=== PATIENT | male | born 1975 | race African-American/Black ===

== ENCOUNTER → 2017-03-13 10:25 | Outpatient (CLI) | payer OTHER ==
[2013-10-13 15:44] VITALS: BMI 34.9
[~2017-03-13 10:25] MED LIST: APRESOLINE50 MG PO; ARANESP60 MCG/ML SQ; BENADRYL25 MG PO; BUMEX2 MG PO; CARAFATE1 G PO; CATAPRES-T1 PATCH.WK TD; LASIX80 MG PO; NORCO 5/325 TAB1 TA1 PO; PAXIL20 MG PO; PRILOSEC20 MG PO; RENVELA800 MG PO; TUMS500 MG PO; ULTRAM50 MG PO; VISTARIL25 MG PO; ZESTRIL40 MG PO
== END | disposition home or self-care (01) ==
LOC: D.US 02-27 11:00
DX: Z00.01 Encounter for general adult medical examination with abnormal findings (principal)

== ENCOUNTER 2018-11-19 12:08 | Inpatient (IN) | payer MEDICAID ==
[2018-11-19] MEDS ORDERED: COREG25 MG PO (12:28)
[2018-11-19] MEDS ORDERED: RANITIDINE HCL150 M1 PO (12:29)
[2018-11-19] MEDS ORDERED: ACIDOPHILUS-PE1 EACH PO (12:29)
[2018-11-19] MEDS ORDERED: SENSIPAR30 MG PO (12:30)
[2018-11-19] MEDS ORDERED: PROCARDIA10 MG PO (12:30)
[2018-11-19] MEDS ORDERED: COZAAR100 MG PO (12:30)
[2018-11-19] MEDS ORDERED: CATAPRES0.3 MG PO (12:31)
[2018-11-19 12:58] LABS: BASOPHILS 0.3 % (0-2); HEMATOCRIT 28.8 % (42.0-54.0); HEMOGLOBIN 9.7 g/dL (13.5-17.5); IMMATURE GRANULOCYTES 0.9 % (0-5); LYMPHOCYTES 9.9 % (15-50); MCH 24.9 pg (26.0-34.0); MCHC 33.7 g/dL (31.0-37.0); MEAN PLATELET VOLUME 10.5 fL (7.4-10.4); MONOCYTES 10.9 % (2-11); PLATELET COUNT 200 10x3/uL (130-400); RBC 3.89 10x6/uL (4.20-6.10); RDW 17.3 % (11.5-14.5)
[2018-11-19 13:14] LABS: ALBUMIN 2.8 g/dL (3.4-5.0); ALKALINE PHOSPHATASE 121 U/L (46-116); ALT (SGPT) 16 U/L (10-68); BILIRUBIN - TOTAL 0.86 mg/dL (0.2-1.3); CALC OSMOLALITY 287 mosm/kg (275-300); CALCIUM 9.4 mg/dL (8.5-10.1); CARBON DIOXIDE 24.9 mmol/L (21.0-32.0); CHLORIDE - SERUM 101 mmol/L (98-107); CREATININE - SERUM 10.7 mg/dL (0.6-1.3); GLUCOSE 81 mg/dL (74-106); POTASSIUM - SERUM 5.7 mmol/L (3.5-5.1); PROTEIN - SERUM 7.4 g/dL (6.4-8.2); SODIUM 138 mmol/L (136-145); UREA NITROGEN 48 mg/dL (7-18); eGFR NON AFRICAN AMERICAN 6 mL/min (90-120)
[2018-11-19 13:23] LABS: CKMB 0.5 U/L (0.0-3.6); CREATINE KINASE 61 UL (21-232); TROPONIN-I < 0.017 ng/mL (0.000-0.060)
[2018-11-19 14:00] VITALS: BP 176/105
[2018-11-19 15:00] VITALS: BP 182/98
--- NOTE | 2018-11-19 16:18 | NUR ---
TRANSFER FROM ER BY STRETCHER. OREINTED TO ROOM. CALL LIGHT IN REACH. WILL CONT. PLAN OF CARE.
--- NOTE | 2018-11-19 16:25 | NUR ---
RECIVED FROM ER PER BED, TO ROOM 2121. ADMIT ASSESSMENT PER RN
[2018-11-19 16:36] VITALS: BP 185/107; BMI 33.4
--- NOTE | 2018-11-19 19:05 | MORECARE ---
CASE MANAGEMENT DISCHARGE SUMMARY PATIENT: KASIA MCINTOSH UNIT: [id number] ADM DATE: 11/19/18 AGE: 42 : 79 SEX: M ROOM/BED: D.2121 AUTHOR: ELISSA VASQUEZ PHYSICIAN: REFERRING PHYSICIAN: JOSE D MONTES DE OCA MD DATE OF SERVICE: 11/19/18 Discharge Plan Patient Name: KASIA MCINTOSH [facility] [facility] 1975 Planned Disposition: Anticipated Discharge Date: Discharge Date: Expected LOS: Initial Reviewer: [email or web address] Initial Review Date: 11/19/2018 Generated: 11/19/18 8:04 pm Patient Name: KASIA MCINTOSH Page [id number] at 1905 All edits/amendments must be made on the electronic document DICTATION DATE: 11/19/181903 SENIOR SERVICE AIDE: MARY 11/19/181903 RPT#: [id number] DC DATE: STATUS: ADM IN [facility] [address] [place] [address] END OF REPORT
[2018-11-19 20:00] VITALS: BP 169/108
--- NOTE | 2018-11-19 21:19 | NUR ---
HS MEDS GIVEN WITH FRESH ICE WATER.
[2018-11-19 23:30] VITALS: BP 163/109; BP 169/108
--- NOTE | 2018-11-20 03:25 | NUR ---
NORCO 2 TABS GIVEN AT PT REQUEST FOR C/O PAIN.
--- NOTE | 2018-11-20 04:26 | NUR ---
RESTING WITH EYES CLOSED, RESPERATIONS EVEN, NO S/S DISTRESS NOTED.
[2018-11-20 04:30] VITALS: BP 152/96
--- NOTE | 2018-11-20 05:38 | NUR ---
I have reviewed this patient and I concur with the Shift Assessment completed by the Licensed Practical Nurse today this shift.
--- NOTE | 2018-11-20 07:30 | NUR ---
ASSESSMENT COMPLETED. ALERT AND ORIENTED. TELEMERTY SHOWS SR. OLD LEFT AND RIGHT AVF NOTED. HAS A SL TO RIGHT UPPER ARM. RIGHT SIDED TESSIO NOTED. NORCO 10MG GIVEN FOR C/O FOOT AND SABDOMINAL PAIN. SR UP WITH CALL LIGHT IN REACH
[2018-11-20 08:43] VITALS: BP 171/109
--- NOTE | 2018-11-20 11:04 | NUR ---
I have reviewed this patient and I concur with the Shift Assessment completed by the Licensed Practical Nurse today this shift.
[2018-11-20 11:40] VITALS: BP 180/105
[2018-11-20 12:10] LABS: BASOPHILS 0.2 % (0-2); EOSINOPHILS 2.5 % (0-7); HEMATOCRIT 30.7 % (42.0-54.0); HEMOGLOBIN 10.5 g/dL (13.5-17.5); IMMATURE GRANULOCYTES 1.3 % (0-5); LYMPHOCYTES 5.2 % (15-50); MCH 25.4 pg (26.0-34.0); MCHC 34.2 g/dL (31.0-37.0); MCV 74.2 fL (80.0-100.0); MEAN PLATELET VOLUME 8.9 fL (7.4-10.4); MONOCYTES 9.2 % (2-11); NEUTROPHILS 81.6 % (40-80); PLATELET COUNT 167 10x3/uL (130-400); RBC 4.14 10x6/uL (4.20-6.10); RDW 17.4 % (11.5-14.5)
[2018-11-20 12:33] LABS: % SATURATION 53 % (15-55); IRON 51 ug/dl (35-150); TOTAL IRON BIND CAPACITY 96 ug/dl (260-445)
[2018-11-20 12:36] VITALS: BMI 33.3
[2018-11-20 12:38] LABS: UNSAT IRON BIND CAPACITY 45 ug/dl (150-375)
--- NOTE | 2018-11-20 13:00 | NUR ---
MEDS GIVEN, NO NEEDS VOICED. SR UP WITH CALL LIGHT IN REACH
[2018-11-20 13:08] LABS: ALBUMIN 2.5 g/dL (3.4-5.0); ALKALINE PHOSPHATASE 121 U/L (46-116); BILIRUBIN - TOTAL 0.67 mg/dL (0.2-1.3); CALCIUM 9.5 mg/dL (8.5-10.1); CARBON DIOXIDE 25.7 mmol/L (21.0-32.0); CHLORIDE - SERUM 99 mmol/L (98-107); CKMB 0.4 U/L (0.0-3.6); CREATINE KINASE 25 UL (21-232); CREATININE - SERUM 13.3 mg/dL (0.6-1.3); GLUCOSE 108 mg/dL (74-106); POTASSIUM - SERUM 5.9 mmol/L (3.5-5.1); SODIUM 137 mmol/L (136-145); TROPONIN-I < 0.017 ng/mL (0.000-0.060); eGFR NON AFRICAN AMERICAN 4 mL/min (90-120)
[2018-11-20 13:09] LABS: ALT (SGPT) 22 U/L (10-68); CALC OSMOLALITY 292 mosm/kg (275-300); FERRITIN 1521 ng/mL (3-244); UREA NITROGEN 62 mg/dL (7-18)
[2018-11-20 15:38] VITALS: BP 194/101
--- NOTE | 2018-11-20 17:00 | NUR ---
T0 DIALYSIS PER BED.
--- NOTE | 2018-11-20 19:25 | NUR ---
REPORT RECIEVED AND ROUNDING COMPLETE. PT IS CURRENTLY IN DIALYSIS.
[2018-11-21] VITALS: BP 182/110
--- NOTE | 2018-11-21 01:00 | NUR ---
I have reviewed this patient and I concur with the Shift Assessment completed by the Licensed Practical Nurse today this shift.
[2018-11-21 04:30] VITALS: BP 185/123
--- NOTE | 2018-11-21 07:30 | NUR ---
ASSESSMENT COMPLETED. ALERT AND ORIENTED. 02 PRN. TELEMERTY SHOWS SR. LEFT UPPER ARM AND LEFT AC.TESSO TO RIGHT CHEST. SORE TO LEFT ANKLE. DENIES ANY NEEDS AT PRESENT TIME
[2018-11-21 08:23] LABS: BASOPHILS 0.2 % (0-2); EOSINOPHILS 2.2 % (0-7); HEMATOCRIT 32.8 % (42.0-54.0); HEMOGLOBIN 11.1 g/dL (13.5-17.5); IMMATURE GRANULOCYTES 1.2 % (0-5); LYMPHOCYTES 6.5 % (15-50); MCH 24.9 pg (26.0-34.0); MCHC 33.8 g/dL (31.0-37.0); MCV 73.7 fL (80.0-100.0); NEUTROPHILS 80.9 % (40-80); PLATELET COUNT 169 10x3/uL (130-400); RBC 4.45 10x6/uL (4.20-6.10); RDW 17.4 % (11.5-14.5)
[2018-11-21 08:24] LABS: WBC 11.7 10x3/uL (4.8-10.8)
[2018-11-21 08:30] VITALS: BP 180/101
[2018-11-21 08:42] LABS: ANION GAP 19.3 mmol/L (8-16); CALCIUM 9.9 mg/dL (8.5-10.1); CARBON DIOXIDE 25.3 mmol/L (21.0-32.0); CREATININE - SERUM 10.6 mg/dL (0.6-1.3); POTASSIUM - SERUM 5.6 mmol/L (3.5-5.1)
--- NOTE | 2018-11-21 10:58 | NUR ---
Nutrition follow-up: Diet: Renal PO intake 75-100% of meals Labs reviewed Wt: 239# +BM RDN following.
[2018-11-21 12:30] VITALS: BP 156/95
[2018-11-21 13:45] LABS: AMYLASE - SERUM 43 U/L (25-115); LIPASE 164 U/L (73-393)
--- NOTE | 2018-11-21 18:24 | NUR ---
BACK FROM DIALYSIS. PAIN MEDS GIVEN. WILL MONITOR
[2018-11-21 20:00] VITALS: BP 169/103
--- NOTE | 2018-11-21 20:00 | NUR ---
PT RESTING IN BED WITH NO DISTRESS. GUARD AT BEDSIDE. ALERT/ORIENTED. REVIEWED PAIN MED AVAILABILITY AND FREQUENCY. PT DIALYZED TODAY VIA RIGHT CHEST WALL TESSIO. HE HAS NONFUNCTIONING FISTULAS TO BOTH LEFT AND RIGHT ARMS. LEFT ARM CAN BE UTILIZED FOR BP'S AND IV'S. HE HAS 2 PIVS SALINE LOCKED TO LEFT ARM. SR PER TELEMETRY. MONITOR AND CPOC.
--- NOTE | 2018-11-21 22:00 | NUR ---
SCHEDULED APRESOLINE GIVEN. CURRENT BP 169/103. NORCO PAIN PILLS X 2 ADMINISTERED. MONITOR AND CPOC.
[2018-11-21 22:06] LABS: FOLATE (FOLIC ACID) - SERUM 5.9 ng/mL (>3.0)
[2018-11-21 23:30] VITALS: BP 145/90
--- NOTE | 2018-11-22 02:22 | NUR ---
GUARD AT BEDSIDE. PT REQUESTING PAIN MEDS, THEN JUICE, THEN JELLO, THEN WANTING TO GET UP AND SHOWER. AT THIS POINT, GUARD STATES IT IS NOT NECESSARY FOR PT TO SHOWER IN THE MIDDLE OF THE NIGHT AND SHOWER/LINEN CHANGE CAN BE DONE IN THE DAYTIME.
[2018-11-22 04:20] VITALS: BP 181/110
--- NOTE | 2018-11-22 04:36 | NUR ---
NOTED BP OF 181/110. REVIEWED ALL MEDS AVAILABLE. PT HAS NO PRN BP MEDS. ADMINISTERED WHAT WOULD BE THE AM SCHEDULED PROCARDIA 90MG AND THE APRESOLINE 100MG ORAL AT THIS TIME AND WILL HAVE DAY NURSE REVIEW BP TRENDS OF BEING ELEVATED AT 0400 LAST TWO NIGHTS WITH THE MD/RENALS WHEN THEY ROUND TODAY. PT VOICED UNDERSTANDING TO WHY HE IS RECIEVING HIS MEDS EARLY. WILL MONITOR AND CPOC.
[2018-11-22 06:55] LABS: BASOPHILS 0.2 % (0-2); EOSINOPHILS 2.6 % (0-7); HEMATOCRIT 32.3 % (42.0-54.0); HEMOGLOBIN 11.2 g/dL (13.5-17.5); IMMATURE GRANULOCYTES 2.6 % (0-5); LYMPHOCYTES 4.8 % (15-50); MCH 25.3 pg (26.0-34.0); MCHC 34.7 g/dL (31.0-37.0); MCV 72.9 fL (80.0-100.0); MONOCYTES 8.9 % (2-11); NEUTROPHILS 80.9 % (40-80); PLATELET COUNT 190 10x3/uL (130-400); RBC 4.43 10x6/uL (4.20-6.10); RDW 17.7 % (11.5-14.5)
[2018-11-22 06:56] LABS: WBC 14.9 10x3/uL (4.8-10.8)
--- NOTE | 2018-11-22 07:00 | NUR ---
REPORT TO ONCOMING NURSE. REPORTED THAT AM DOSES OF BP MEDS HAVE ALREADY BEEN GIVEN DUE TO ELEVATED BP AND ON PRN'S AVAILABLE. DAY HEALTH AND HUMAN PERFORMANCE PROFESSOR NOW REPORTING TO DAY NURSE THAT BP IS STILL ELEVATED.
[2018-11-22 07:13] LABS: ANION GAP 16.9 mmol/L (8-16); CALCIUM 10.1 mg/dL (8.5-10.1); CARBON DIOXIDE 26.1 mmol/L (21.0-32.0); CREATININE - SERUM 10.1 mg/dL (0.6-1.3)
[2018-11-22 08:31] VITALS: BP 174/107
[2018-11-22 11:30] VITALS: BP 164/104
[2018-11-22 16:34] VITALS: BP 165/102
[2018-11-22 20:14] VITALS: BP 142/90
--- NOTE | 2018-11-22 20:58 | NUR ---
SCHEDULED MEDS GIVEN. REQUESTED PAIN MED GIVEN. PT TEACHING ON NORCO 10, PROVIDING SAME AMOUNT OF PAIN MED NORCO 5 X 2, ONLY LESS HARMFUL TYLENOL. GUARD AT BEDSIDE. MONITOR AND CPOC.
[2018-11-22 23:45] VITALS: BP 149/90
--- NOTE | 2018-11-23 02:44 | NUR ---
AWAKE AND WATCHING TV. REQUEST DRINK, SPOON TO EAT DESERT AND THEN PAIN MEDS FOR CHEST DISCOMFORT 02/07. PAIN MED GIVEN, GUARD AT BEDSIDE. NO OTHER NEEDS VOICED.
[2018-11-23 03:49] VITALS: BP 167/93
[2018-11-23 03:51] LABS: ANION GAP 17.8 mmol/L (8-16); BASOPHILS 0.4 % (0-2); CALCIUM 9.9 mg/dL (8.5-10.1); CARBON DIOXIDE 25.2 mmol/L (21.0-32.0); CREATININE - SERUM 12.1 mg/dL (0.6-1.3); EOSINOPHILS 2.8 % (0-7); HEMATOCRIT 32.3 % (42.0-54.0); HEMOGLOBIN 10.9 g/dL (13.5-17.5); IMMATURE GRANULOCYTES 1.9 % (0-5); LYMPHOCYTES 4.2 % (15-50); MCH 24.8 pg (26.0-34.0); MCHC 33.7 g/dL (31.0-37.0); MCV 73.4 fL (80.0-100.0); MONOCYTES 6.3 % (2-11); NEUTROPHILS 84.4 % (40-80); PLATELET COUNT 180 10x3/uL (130-400); RDW 17.8 % (11.5-14.5); WBC 13.9 10x3/uL (4.8-10.8)
--- NOTE | 2018-11-23 07:10 | NUR ---
REPORT RECEIVED. WILL CONTINUE WITH POC. PT CURRENTLY LYING ON RIGHT SIDE RESTING. CALL LIGHT W/I REACH. GUARD AT BEDSIDE. RR EVEN AND UNLABORED ON RA. L. FOR PIV IS SALINE LOCKED. NO S/S OF DISTRESS NOTED. WILL CTM.
--- NOTE | 2018-11-23 08:58 | NUR ---
I have reviewed this patient and I concur with the Shift Assessment completed by the Licensed Practical Nurse today this shift.
[2018-11-23 10:00] VITALS: BP 159/93
[2018-11-23 16:43] VITALS: BP 153/88
[2018-11-23 17:14] VITALS: BP 160/89
--- NOTE | 2018-11-23 18:19 | NUR ---
PT CURRENTLY RESTING ON RIGHT SIDE. CALL LIGHT W/I REACH. RR EVEN AND UNLABORED ON RA. GUARD AT BEDSIDE. NO S/S OF DISTRESS NOTED. PT DENIES ANY NEEDS AT THIS TIME. WILL PASS REPORT AND CONTINUE WITH POC.
--- NOTE | 2018-11-23 19:22 | NUR ---
RECEIVED REPORT, WILL ASSUME CARE OF PT, DENIES ANY NEEDS AT THIS TIME, GUARD AT BEDSIDE, BED IS LOW, SRX2, CALL LIGHT IN REACH, WILL CONTINUE PLAN OF CARE
[2018-11-23 19:55] VITALS: BP 131/81
[2018-11-24 03:43] VITALS: BP 152/70
--- NOTE | 2018-11-24 04:07 | NUR ---
I have reviewed this patient and I concur with the Shift Assessment completed by the Licensed Practical Nurse today this shift.
[2018-11-24 05:45] LABS: BASOPHILS 0.2 % (0-2); EOSINOPHILS 2.7 % (0-7); HEMATOCRIT 31.2 % (42.0-54.0); HEMOGLOBIN 10.5 g/dL (13.5-17.5); IMMATURE GRANULOCYTES 1.4 % (0-5); LYMPHOCYTES 5.8 % (15-50); MCH 24.6 pg (26.0-34.0); MCHC 33.7 g/dL (31.0-37.0); MCV 73.1 fL (80.0-100.0); MEAN PLATELET VOLUME 9.4 fL (7.4-10.4); MONOCYTES 5.6 % (2-11); NEUTROPHILS 84.3 % (40-80); PLATELET COUNT 214 10x3/uL (130-400); RBC 4.27 10x6/uL (4.20-6.10); RDW 18.3 % (11.5-14.5); WBC 17.2 10x3/uL (4.8-10.8)
[2018-11-24 06:06] LABS: ANION GAP 22.3 mmol/L (8-16); CALCIUM 9.6 mg/dL (8.5-10.1); CARBON DIOXIDE 24.5 mmol/L (21.0-32.0); CREATININE - SERUM 13.8 mg/dL (0.6-1.3)
[2018-11-24 06:07] LABS: POTASSIUM - SERUM 5.8 mmol/L (3.5-5.1)
[2018-11-24 07:38] VITALS: BP 157/99
--- NOTE | 2018-11-24 07:40 | NUR ---
ASSESSMENT COMPLETED. ALERT AND ORIENTED. TELEMERTY SHOWS SR. LEFT UPPER ARM SL. OLD RIGHT AND LEFT AVF, NOT WORKING. UP AB BRIGHT. DENIES ANY NEEDS AT PRESENT TIME. CALL LIGHT IN REACH.
[2018-11-24 11:56] VITALS: BP 155/92
[2018-11-24 16:14] VITALS: BP 183/101
--- NOTE | 2018-11-24 20:53 | NUR ---
PT STILL IN DIALYSIS.
[2018-11-25] VITALS: BP 168/102
--- NOTE | 2018-11-25 03:24 | NUR ---
I have reviewed this patient and I concur with the Shift Assessment completed by the Licensed Practical Nurse today this shift.
[2018-11-25 04:00] VITALS: BP 159/99
[2018-11-25 04:59] LABS: ANION GAP 15.1 mmol/L (8-16); CALCIUM 9.8 mg/dL (8.5-10.1); CARBON DIOXIDE 27.7 mmol/L (21.0-32.0); CREATININE - SERUM 10.5 mg/dL (0.6-1.3); VANCOMYCIN - RANDOM 0.7 ug/mL (10.0-20.0)
[2018-11-25 05:01] LABS: BASOPHILS 0.2 % (0-2); EOSINOPHILS 1.8 % (0-7); HEMATOCRIT 31.9 % (42.0-54.0); HEMOGLOBIN 10.8 g/dL (13.5-17.5); IMMATURE GRANULOCYTES 1.5 % (0-5); LYMPHOCYTES 3.8 % (15-50); MCH 24.8 pg (26.0-34.0); MCHC 33.9 g/dL (31.0-37.0); MCV 73.2 fL (80.0-100.0); MONOCYTES 6.7 % (2-11); PLATELET COUNT 232 10x3/uL (130-400); RBC 4.36 10x6/uL (4.20-6.10); RDW 18.3 % (11.5-14.5); WBC 19.6 10x3/uL (4.8-10.8)
[2018-11-25 05:19] LABS: POTASSIUM - SERUM 4.8 mmol/L (3.5-5.1)
--- NOTE | 2018-11-25 07:15 | NUR ---
ASSESSMENT COMPLETED. ALERT AND ORIENTED. TELEMERTY SHOWS SR 100. SL TO LEFT UPPER ARM. RIGHT AND LEFT AVF NOT WORKING. RIGHT CHEST TESSIO. UP AB BRIGHT. SR UP WITH CALL LIGHT IN REACH.
[2018-11-25 07:47] VITALS: BP 168/90
--- NOTE | 2018-11-25 08:50 | NUR ---
C/O ABD PAIN. PEROCET PO GIVEN FOR RELIEF
--- NOTE | 2018-11-25 14:34 | NUR ---
I have reviewed this patient and I concur with the Shift Assessment completed by the Licensed Practical Nurse today this shift.
[2018-11-25 16:16] VITALS: BP 120/63
[2018-11-25 16:22] VITALS: BP 140/60
--- NOTE | 2018-11-25 17:46 | NUR ---
LYING QUIETLY WATCHING TV. DENIES ANY NEEDS. TELEMERTY SHOWS SR
[2018-11-25 20:00] VITALS: BP 157/94
[2018-11-26] VITALS: BP 140/90
--- NOTE | 2018-11-26 02:35 | NUR ---
I have reviewed this patient and I concur with the Shift Assessment completed by the Licensed Practical Nurse today this shift.
[2018-11-26 04:00] VITALS: BP 143/97
[2018-11-26 05:19] LABS: BASOPHILS 0.1 % (0-2); EOSINOPHILS 1.9 % (0-7); HEMATOCRIT 30.6 % (42.0-54.0); HEMOGLOBIN 10.4 g/dL (13.5-17.5); IMMATURE GRANULOCYTES 1.1 % (0-5); LYMPHOCYTES 3.4 % (15-50); MCH 25.1 pg (26.0-34.0); MCV 73.7 fL (80.0-100.0); MEAN PLATELET VOLUME 9.6 fL (7.4-10.4); MONOCYTES 7.9 % (2-11); NEUTROPHILS 85.6 % (40-80); PLATELET COUNT 276 10x3/uL (130-400); RBC 4.15 10x6/uL (4.20-6.10); RDW 18.8 % (11.5-14.5); WBC 19.5 10x3/uL (4.8-10.8)
[2018-11-26 05:52] LABS: CALCIUM 9.8 mg/dL (8.5-10.1); CREATININE - SERUM 12.9 mg/dL (0.6-1.3); PHOSPHOROUS 6.8 mg/dL (2.5-4.9)
--- NOTE | 2018-11-26 07:23 | NUR ---
PT IN BED RESTING COMFORTABLY WITH EYES CLOSED. RESP EVEN AND NONLABORED ON RA. LT UPPER ARM IV SL. PT SHACKLED TO THE BED, GUARD AT BEDSIDE, NAD NOTED, WILL CONTINUE PLAN OF CARE.
[2018-11-26 07:56] VITALS: BP 147/88
--- NOTE | 2018-11-26 08:21 | NUR ---
AM MEDS GIVEN AT THIS TIME. PT C/O ABD PAIN, INFORMED HIM THAT HE CANNOT HAVE ANYTHING UNTIL AROUND 1000. PT JUST GOT OUT OF THE SHOWER, DENIES ANY NEEDS AT THIS TIME. CALL LIGHT IN REACH, NAD NOTED, WILL CONTINUE TO MONITOR.
--- NOTE | 2018-11-26 10:50 | NUR ---
TO DIALYSIS AT THIS TIME.
--- NOTE | 2018-11-26 13:11 | NUR ---
Nutrition follow-up: Diet: Renal PO intake 100% of most meals Labs reviewwed +BM Wt: 238# RDN following.
[2018-11-26 16:33] VITALS: BP 142/78
--- NOTE | 2018-11-26 19:33 | NUR ---
ASSESSMENT COMPLETE. PT A&O. RESPERATIONS EVEN ON RA. IV TO LEFT UPPER ARM SL, SITE CLEAN AND DRY. PT ASKING FOR PAIN MEDS WHEN AVAILABLE. GUARD AT BED SIDE. BED LOW, CL IN REACH.
[2018-11-26 20:00] VITALS: BP 113/72
--- NOTE | 2018-11-26 20:18 | NUR ---
PT TRYING TO CLIMB OUT OF BED AND ARGING WITH NURSING STAFF, HS MEDS GIVEN WITH FRESH ICE WATER. ATIVAN 1 MG GIVEN IV FOR S/S AGITATION.
--- NOTE | 2018-11-26 20:18 | NUR ---
HS MEDS GIVEN WITH FRESH ICE WATER. PERCOCET 1 TAB GIVEN AT PT REQUEST FOR C/O PAIN TO ABD. RATES PAIN AT AN 8 ON PAIN SCALE.
[2018-11-27] VITALS: BP 145/83
--- NOTE | 2018-11-27 01:42 | NUR ---
RESTING WITH EYES CLOSED, RESPERATIONS EVEN, NO S/S DISTRESS NOTED.
--- NOTE | 2018-11-27 02:39 | NUR ---
I have reviewed this patient and I concur with the Shift Assessment completed by the Licensed Practical Nurse today this shift.
[2018-11-27 04:00] VITALS: BP 136/74
[2018-11-27 05:30] LABS: BASOPHILS 0.2 % (0-2); EOSINOPHILS 2.3 % (0-7); HEMATOCRIT 29.8 % (42.0-54.0); HEMOGLOBIN 9.9 g/dL (13.5-17.5); IMMATURE GRANULOCYTES 1.1 % (0-5); LYMPHOCYTES 7.6 % (15-50); MCH 24.6 pg (26.0-34.0); MCHC 33.2 g/dL (31.0-37.0); MCV 74.1 fL (80.0-100.0); MEAN PLATELET VOLUME 9.3 fL (7.4-10.4); MONOCYTES 8.7 % (2-11); NEUTROPHILS 80.1 % (40-80); PLATELET COUNT 304 10x3/uL (130-400); RBC 4.02 10x6/uL (4.20-6.10); RDW 18.8 % (11.5-14.5); WBC 17.2 10x3/uL (4.8-10.8)
[2018-11-27 05:37] LABS: ANION GAP 16.8 mmol/L (8-16); CALCIUM 10.3 mg/dL (8.5-10.1); CARBON DIOXIDE 26.2 mmol/L (21.0-32.0); CREATININE - SERUM 10.3 mg/dL (0.6-1.3); VANCOMYCIN - RANDOM 20.2 ug/mL (10.0-20.0)
--- NOTE | 2018-11-27 07:15 | NUR ---
RECEIVED LYING IN BED WITH RIGHT LEG SHANKLE AND OFFICER IN ROOM. PEDAL PULSE IS PALPABLE. CL IN REACH. DENIES ANY CURRENT NEEDS. RESP EVEN WITHOUT LABOR.
--- NOTE | 2018-11-27 07:57 | NUR ---
VANCOMYCIN LEVEL DONE TODAY WAS 20.2. DR LIEBERMAN WAS HERE AND GAVE ORDER TO HOLD DOSE OF VANCOMYCIN.
[2018-11-27 08:38] VITALS: BP 160/105
--- NOTE | 2018-11-27 10:30 | NUR ---
HE C/O ITCHING TO LEFT ANKLE THAT HAS DRY PATCH OF SKIN NOTED. NO OPEN AREA JUST DRY AND ITCHY. STATES TRIPLE ANTIBIOTIC OINTMENT WOULD BE GOOD. I SPOKE WITH NIKI WALKER AND SHE GAVE THE ORDER FOR THIS,
--- NOTE | 2018-11-27 11:07 | NUR ---
HE HAS TWO OLD SHUNTS ONE IN EACH ARM THAT ARE NOT PATENT AND ARE NOT USED.
[2018-11-27 11:39] VITALS: BP 123/88
--- NOTE | 2018-11-27 13:48 | NUR ---
NO C/O VOICED AT THIS TIME. RESP EVEN WITHOUT LABOR. CL IN REACH. LYING WATCHING TV. TAKING PO FLUIDS WELL.
--- NOTE | 2018-11-27 14:35 | NUR ---
X-RAY OF ABDOMEN DONE PER ORDERS AT THIS TIME. ALICE WELL.
--- NOTE | 2018-11-27 14:52 | NUR ---
CL ON REQUEST SOME APPLE JUICE ON ICE. DENIES ANY CURRENT NEEDS BUT DID ASK IF IT WAS TIME FOR HIS PAIN MEDICATION. I TOLD HIM NO AND HE SAID OK. DENIED ANY OTHER NEEDS.
[2018-11-27 15:55] VITALS: BP 139/76
[2018-11-27] MEDS ORDERED: NORVASC10 MG PO (16:08)
[2018-11-27] MEDS ORDERED: HYDRALAZINE HCL50 MG PO (16:08)
[2018-11-27] MEDS ORDERED: LEVAQUIN750 MG PO (16:15)
[2018-11-27] MEDS ORDERED: Triple Antibiotic Oi TOPICAL (16:18)
--- NOTE | 2018-11-27 16:37 | NUR ---
TREY CALLED STATED HE WOULD NOT BE DISCHARGED TODAY, AFTER CONSULTING WITH RENAL THEY WANT TO DO DIALYSIS TOMORROW AND THEN DISCHARGE. GUARD AND PATIENT ARE AWARE. SHAKLE TO RIGHT FOOT, PEDAL PULSE IS GOOD. REQUESTED SOME JELLO WHICH WAS PROVIDED.
--- NOTE | 2018-11-27 19:18 | NUR ---
BEDSIDE REPORT RECEIVED. PT IS AAO, GUARD AT BEDSIDE. 21/01 NAME AND DATE PLACED ON BOARD. BEDLOW AND CALL LIGHT IN REACH. NO S/S OF DISTRESS. PT WILL CALL FOR ASSIST WHEN NEEDED. WILL CPOC
[2018-11-27 20:00] VITALS: BP 127/79
--- NOTE | 2018-11-27 21:48 | NUR ---
PAIN MED GIVEN FOR 9/10 PAIN. ANTIBIOTIC OIT PUT ON BILATERAL ANKLES. PT HAS GUARD AT BEDSIDE. PT DENIES ANY NEEDS. NO S/S OF DISTRESS. NOURISHMENT IN REACH. PT WILL CALL FOR ASSIST WHEN NEEDED. WILL CPOC
--- NOTE | 2018-11-27 23:33 | NUR ---
PROTONIX GIVEN LEFT UPPER ARM 22G. PT DENIES ANY NEEDS. GUARD IN ROOM; PT HAS NO S/S OF DISTRESS. WILL CPOC
[2018-11-28] VITALS: BP 149/85
--- NOTE | 2018-11-28 01:47 | NUR ---
PT CALLED COMPLAINING OF PAIN. ORDERED PAIN MEDICATION GIVEN. PT ALSO REQUEST A SANDWICH. PT RECEIVED. PT DENIES ANY OTHER NEEDS. NO S/S OF DISTRESS. GUARD AT BEDSIDE. WILL CPOC
[2018-11-28 04:00] VITALS: BP 127/83
[2018-11-28 05:46] LABS: BASOPHILS 0.3 % (0-2); EOSINOPHILS 2.3 % (0-7); HEMATOCRIT 26.8 % (42.0-54.0); IMMATURE GRANULOCYTES 0.9 % (0-5); MCH 24.7 pg (26.0-34.0); MCHC 33.6 g/dL (31.0-37.0); MCV 73.6 fL (80.0-100.0); NEUTROPHILS 79.5 % (40-80); PLATELET COUNT 307 10x3/uL (130-400); RBC 3.64 10x6/uL (4.20-6.10); RDW 18.6 % (11.5-14.5); WBC 14.6 10x3/uL (4.8-10.8)
[2018-11-28 05:54] LABS: ANION GAP 19.2 mmol/L (8-16); CALCIUM 9.6 mg/dL (8.5-10.1); CARBON DIOXIDE 23.4 mmol/L (21.0-32.0); CREATININE - SERUM 12.3 mg/dL (0.6-1.3); POTASSIUM - SERUM 5.6 mmol/L (3.5-5.1); VANCOMYCIN - RANDOM 16.2 ug/mL (10.0-20.0)
--- NOTE | 2018-11-28 06:08 | NUR ---
PT COMPLAINS OF PAIN. PERCOCET GIVEN ORDERED. PT DENIES ANY OTHER NEEDS. WILL CPOC
[2018-11-28 08:02] VITALS: BP 145/81
--- NOTE | 2018-11-28 09:20 | NUR ---
MORNING MEDICATIONS GIVEN ORDERED. PT C/O PAIN IN BILAT LEGS AND ABDOMEN PROVIDED PT WITH HIS PAIN MEDICATION REQUESTED. PT IS SUPPOSED TO BE DISCHARGED BACK TO FACILITY AFTER DIALYSIS. CALLED DIALYSIS AND DISCUSSED WITH FRANK AND SHE WILL HAVE HIM ON FIRST ROTATION. PT IS TO RECIEVE A ONE TIME DOSE OF VANCOMYCIN AT THE END OF HIS DIALYSIS TREATMENT, ALSO DISCUSSED WITH FRANK AND WILL SEND DOWN WITH PT. PT DENIES ANY FURTHER NEEDS AT THIS TIME. GUARD AT BEDSIDE. WILL CPOC.
--- NOTE | 2018-11-28 09:43 | NUR ---
STILL WAITING ON PROCRIT MEDICATION THAT IS DUE. PAGED PHARMACY AND WAITING ON THEM TO PROVIDE.
--- NOTE | 2018-11-28 10:54 | NUR ---
CALLED DIALYSIS AND THEY STATE THEY ARE ALMOST READY FOR PT. NO CURRENT NEEDS. CALLED PHARMACY STILL WAITING ON THE PROCRIT INJECTION. ITS NOW 2 HRS LATE. WILL CTM.
--- NOTE | 2018-11-28 11:38 | NUR ---
PT LEAVING FOR DIALYSIS AT THIS TIME. NO CURRENT NEEDS. HE WILL HAVE VANCOMYCIN AT END OF TREATMENT. NO CURRENT NEEDS.
[2018-11-28] MEDS ORDERED: SENNA8.6 MG PO (12:21)
--- NOTE | 2018-11-28 13:02 | NUR ---
PT STILL IN DIALYSIS AND DOING FINE. DENIES ANY CURRENT PAIN OR NEEDS. CALLED FACILITY @ [phone] TO GIVE NURSE REPORT. PT IS GOING TO BE DISCHARGED TODAY. NO CURRENT NEEDS. WILL CTM.
--- NOTE | 2018-11-28 15:00 | NUR ---
PT BACK FROM DIALYSIS AND RESTING QUIETLY IN BED EATING HIS LUNCH TRAY. PT C/O PAIN AND REQUESTING AND PROVIDED WITH PRN PAIN PILL. D/C PTS L.UPPER ARM PIV WITH CATHETER TIP FULLY INTACT. DISCHARGE TEACHING PROVIDED AND PAPERS SIGNED, PT VERBALIZED UNDERSTANDING AND DENIES ANY QUESTIONS OR CONCERNS. NO FURTHER NEEDS AT THIS TIME. GUARD AT BEDSIDE WAITING ON TRANSPORTATION.
--- NOTE | 2018-11-28 17:19 | MORECARE ---
CASE MANAGEMENT DISCHARGE SUMMARY PATIENT: KASIA MCINTOSH UNIT: [id number] ADM DATE: 11/20/18 AGE: 42 : 79 SEX: M ROOM/BED: D.2123 AUTHOR: ELISSA VASQUEZ PHYSICIAN: REFERRING PHYSICIAN: JOSE D MONTES DE OCA MD DATE OF SERVICE: 11/28/18 Discharge Plan Patient Name: KASIA MCINTOSH [facility] [facility] 1975 Planned Disposition: Other Type of Facility Anticipated Discharge Date: 11/28/18 Discharge Date: Expected LOS: 8 Initial Reviewer: [email or web address] Initial Review Date: 11/19/2018 Generated: 11/28/18 6:19 pm Last DP export: 11/19/18 6:05 p Patient Name: KASIA MCINTOSH Page [id number] at 1719 All edits/amendments must be made on the electronic document DICTATION DATE: 11/28/181717 SHEET METAL TECHNICIAN: MARY 11/28/181717 RPT#: [id number] DC DATE: STATUS: ADM IN [facility] [address] [place] [address] END OF REPORT
--- NOTE | 2018-11-28 17:52 | NUR ---
RETURNED TELEMETRY TO [facility]. PTS TRANSPORTATION FINALLY HERE. NO FURTHER NEEDS.
== END 2018-11-28 17:52 | disposition home or self-care (01) | DRG 682 ==
LOC: D.ER 12:08 → D.M2 13:45 → OBSVTIME 13:45 → D.M2 13:45
PROVIDERS: Emergency Medicine; Family Medicine; Internal Medicine Nephrology; ADMIT Internal Medicine Nephrology; ATTEND Internal Medicine Nephrology
DX: I12.0 Hypertensive chronic kidney disease with stage 5 chronic kidney disease or end stage renal disease (principal); N18.6 End stage renal disease; N25.81 Secondary hyperparathyroidism of renal origin; I42.9 Cardiomyopathy, unspecified; T82.868A Thrombosis due to vascular prosthetic devices, implants and grafts, initial encounter; I20.9 Angina pectoris, unspecified; Z99.2 Dependence on renal dialysis; F32.9 Major depressive disorder, single episode, unspecified; E83.39 Other disorders of phosphorus metabolism; K21.9 Gastro-esophageal reflux disease without esophagitis; D50.9 Iron deficiency anemia, unspecified; E87.5 Hyperkalemia; D63.1 Anemia in chronic kidney disease; Y83.9 Surgical procedure, unspecified as the cause of abnormal reaction of the patient, or of later complication, without mention of misadventure at the time of the procedure

== ENCOUNTER 2019-11-16 10:06 | Inpatient (IN) | payer MEDICAID ==
[~2019-11-16] VITALS: Ht 180.3 cm; Wt 94.1 kg
[~2019-11-16 10:06] MED LIST changes: +ACIDOPHILUS-PE1 EACH PO; +CATAPRES0.3 MG PO; +COREG25 MG PO; +COZAAR100 MG PO; +HYDRALAZINE HCL50 MG PO; +LEVAQUIN750 MG PO; +NORVASC10 MG PO; +PROCARDIA10 MG PO; +RANITIDINE HCL150 M1 PO; +SENNA8.6 MG PO; +SENSIPAR30 MG PO; +Triple Antibiotic Oi TOPICAL
[2019-11-16] MEDS ORDERED: CATAPRES0.1 MG (10:12)
[2019-11-16] MEDS ORDERED: BUMEX2 MG (10:13)
[2019-11-16] MEDS ORDERED: LISINOPRIL40 MG (10:13)
[2019-11-16] MEDS ORDERED: OMEPRAZOLE40 MG (10:14)
[2019-11-16] MEDS ORDERED: ULTRAM50 MG (10:15)
[2019-11-16] MEDS ORDERED: SODIUM THIOSULFATE (10:15)
[2019-11-16] MEDS ORDERED: HYDRALAZINE HCL50 MG (10:16)
[2019-11-16] MEDS ORDERED: COREG12.5 MG PO (10:16)
[2019-11-16] MEDS ORDERED: ZINC50 MG (10:16)
[2019-11-16] MEDS ORDERED: LEVOFLOXACIN500 MG (10:17)
[2019-11-16] MEDS ORDERED: DILTIAZEM PO (10:18)
[2019-11-16] MEDS ORDERED: KALEXATE454 GM (10:18)
[2019-11-16] MEDS ORDERED: CLINDAMYCIN HC150 MG (10:19)
[2019-11-16 10:54] LABS: CALC OSMOLALITY 300 mosm/kg (275-300); CALCIUM 8.4 mg/dL (8.5-10.1); CHLORIDE - SERUM 103 mmol/L (98-107); CREATININE - SERUM 13.6 mg/dL (0.6-1.3); GLUCOSE 83 mg/dL (74-106); POTASSIUM - SERUM 5.1 mmol/L (3.5-5.1); SODIUM 139 mmol/L (136-145); UREA NITROGEN 80 mg/dL (7-18); eGFR NON AFRICAN AMERICAN 4 mL/min (90-120)
[2019-11-16 11:01] LABS: BASOPHILS 0.7 % (0-2); EOSINOPHILS 1.2 % (0-7); HEMATOCRIT 28.6 % (42.0-54.0); HEMOGLOBIN 9.1 g/dL (13.5-17.5); IMMATURE GRANULOCYTES 0.1 % (0-5); LYMPHOCYTES 3.7 % (15-50); MCH 26.5 pg (26.0-34.0); MCHC 31.8 g/dL (31.0-37.0); MCV 83.1 fL (80.0-100.0); MEAN PLATELET VOLUME 10.1 fL (7.4-10.4); MONOCYTES 7.2 % (2-11); NEUTROPHILS 87.1 % (40-80); RBC 3.44 10x6/uL (4.20-6.10); RDW 13.9 % (11.5-14.5)
[2019-11-16 11:06] LABS: PLATELET COUNT 153 10x3/uL (130-400)
[2019-11-16 11:10] LABS: ALBUMIN 3.5 g/dL (3.4-5.0); ALKALINE PHOSPHATASE 131 U/L (30-120); ALT (SGPT) 8 U/L (10-68); BILIRUBIN - TOTAL 0.78 mg/dL (0.2-1.3); CKMB 0.8 U/L (0.0-3.6); CREATINE KINASE 121 UL (21-232); PROTEIN - SERUM 6.8 g/dL (6.4-8.2); TROPONIN-I 0.047 ng/mL (0.000-0.060)
[2019-11-16 11:17] LABS: APTT 35.5 SECONDS (22.8-39.4); INR 1.13 (0.85-1.17); PROTIME 14.4 SECONDS (11.6-15.0)
[2019-11-16 11:29] LABS: PRO BNP 50333 pg/mL (0-125)
[2019-11-16 11:45] VITALS: BP 179/109
--- NOTE | 2019-11-16 11:47 | NUR ---
PT SITTING UP IN BED. NO DISTRESS NOTED. DEBORAH AT BEDSIDE. COLOR WNL FOR RACE. RESPIRATIONS EVEN AND UNLABORED. WILL CONTINUET TO MONITOR PATIENT.
[2019-11-16 13:45] VITALS: BP 184/117; BMI 25.8
--- NOTE | 2019-11-16 14:09 | NUR ---
PATIENT WAS EDUCATED ABOUT DIALYSIS TODAY AND THE IMPORTANCE OF WEARING HIS OXYGEN AT ALL TIME UNTIL HE IS BREATHING BETTER. GAVE PT PAIN MEDICATION PER AUG. PT IS RESTING QUIETLY IN BED
--- NOTE | 2019-11-16 15:11 | NUR ---
PT ADMITTED WITH 2 OPEN WOUNDS (CHRONIC) ON LEFT MEDIAL ANKLE. HE STATES HE'S HAD THEM FOR "A LONG TIME". UPPER WOUND MEASURES 2CM X 1CM X 1CM - LOWER WOUND MEASURES 1CM X 1CM X 0.2CM. NO DRAINAGE OR ODOR IS NOTED. PT STATES THEY DO "DRIP" ALOT AND FREQUENTLY SOAK HIS SOCK. RECOMMENDED MAXORB AG OVER BOTH AREAS, WITH ADAPTIC, 4X4S AND KERLIX TO SECURE. WOUND CARE WILL MONITOR.
[2019-11-16 17:02] VITALS: BP 197/112
--- NOTE | 2019-11-16 19:45 | NUR ---
PT REMAINS IN DIALYSIS AT THIS TIME
[2019-11-16 20:00] VITALS: BP 160/88
--- NOTE | 2019-11-16 20:10 | NUR ---
LANDY FROM DIALYSIS
[2019-11-17] VITALS: BP 162/86
--- NOTE | 2019-11-17 02:35 | NUR ---
I have reviewed this patient and I concur with the Shift Assessment completed by the Licensed Practical Nurse today this shift.
[2019-11-17 04:00] VITALS: BP 150/84
[2019-11-17 05:43] LABS: BASOPHILS 0.5 % (0-2); EOSINOPHILS 1.1 % (0-7); HEMATOCRIT 26.9 % (42.0-54.0); HEMOGLOBIN 8.5 g/dL (13.5-17.5); IMMATURE GRANULOCYTES 0.3 % (0-5); LYMPHOCYTES 5.8 % (15-50); MCH 25.9 pg (26.0-34.0); MCHC 31.6 g/dL (31.0-37.0); MEAN PLATELET VOLUME 10.4 fL (7.4-10.4); MONOCYTES 12.4 % (2-11); NEUTROPHILS 79.9 % (40-80); PLATELET COUNT 149 10x3/uL (130-400); RBC 3.28 10x6/uL (4.20-6.10); WBC 6.5 10x3/uL (4.8-10.8)
[2019-11-17 06:23] LABS: ANION GAP 15.4 mmol/L (8-16); CALCIUM 8.3 mg/dL (8.5-10.1); CARBON DIOXIDE 24.9 mmol/L (21.0-32.0); CREATININE - SERUM 10.4 mg/dL (0.6-1.3)
[2019-11-17 06:24] LABS: POTASSIUM - SERUM 4.3 mmol/L (3.5-5.1)
[2019-11-17 07:52] VITALS: BP 177/103
[2019-11-17 11:36] VITALS: BP 144/82
[2019-11-17 12:31] VITALS: Ht 180.3 cm; Wt 94.1 kg
--- NOTE | 2019-11-17 18:56 | NUR ---
RESTS IN BED WITH CALL LIGHT IN REACH. NO C/O VOICED AT THIS TIME. WILL MONITOR.
--- NOTE | 2019-11-17 19:16 | NUR ---
ALERT AND ORIENTED GABI IS WITH PT PT ASKED FOR AND RECIEVED MANY THINGS BED LOW AND LOCKED GABI IS SHACKLING PT TO BED RAIL CALL LIGHT IN REACH OF PT
[2019-11-18] VITALS: BP 148/84
--- NOTE | 2019-11-18 03:43 | NUR ---
I have reviewed this patient and I concur with the Shift Assessment completed by the Licensed Practical Nurse today this shift.
[2019-11-18 04:00] VITALS: BP 147/81
[2019-11-18 05:52] LABS: EOSINOPHILS 2.4 % (0-7); HEMATOCRIT 26.8 % (42.0-54.0); HEMOGLOBIN 8.6 g/dL (13.5-17.5); LYMPHOCYTES 14.5 % (15-50); MCH 26.1 pg (26.0-34.0); MCHC 32.1 g/dL (31.0-37.0); MCV 81.2 fL (80.0-100.0); MEAN PLATELET VOLUME 10.3 fL (7.4-10.4); MONOCYTES 11.9 % (2-11); NEUTROPHILS 70.2 % (40-80); PLATELET COUNT 146 10x3/uL (130-400)
[2019-11-18 06:15] LABS: WBC 4.2 10x3/uL (4.8-10.8)
[2019-11-18 06:18] LABS: ANION GAP 13.4 mmol/L (8-16); CALCIUM 9.1 mg/dL (8.5-10.1); CARBON DIOXIDE 25.5 mmol/L (21.0-32.0); CREATININE - SERUM 8.9 mg/dL (0.6-1.3); POTASSIUM - SERUM 3.9 mmol/L (3.5-5.1)
[2019-11-18 09:24] VITALS: BP 153/76
[2019-11-18 11:43] VITALS: BP 128/67
[2019-11-18] MEDS ORDERED: CARDIZEM CD180 MG PO (13:01)
--- NOTE | 2019-11-18 13:15 | NUR ---
I have reviewed this patient and I concur with the Shift Assessment completed by the Licensed Practical Nurse today this shift.
--- NOTE | 2019-11-18 13:18 | NUR ---
I PAGED KATHE IQBAL APN TO HAVE DR MONTES DE OCA DO DOC TO DOC FOR DISCHARGE. SHE STATES, " IT HAS BEEN DONE". I RELAYED THIS TO YAN CHARLTON.
--- NOTE | 2019-11-18 13:22 | NUR ---
I CALLED DIALYSIS UNIT AND SPOKE TO VIVI WHO STATES, "IT'S GOING TO BE WITHIN THE NEXT THREE HOURS THEY ARE IN THE UNIT RIGHT NOW". THIS IS RELAYED TO YAN CHARLTON.
--- NOTE | 2019-11-18 13:52 | MORECARE ---
CASE MANAGEMENT DISCHARGE SUMMARY PATIENT: KASIA MCINTOSH UNIT: [id number] ADM DATE: 11/17/19 AGE: 43 : 79 SEX: M ROOM/BED: D.2103 AUTHOR: ELISSA VASQUEZ PHYSICIAN: REFERRING PHYSICIAN: JOSE D MONTES DE OCA MD DATE OF SERVICE: 11/18/19 Discharge Plan Patient Name: KASIA MCINTOSH [facility] [facility] 1975 Planned Disposition: Court\Law Enforcement Anticipated Discharge Date: 11/18/19 Discharge Date: Expected LOS: 1 Initial Reviewer: [email or web address] Initial Review Date: 11/18/2019 Generated: 11/18/19 2:52 pm Comments DCP- Discharge Planning Updated by [email or web address]: Yesi Bangura on 11/18/19 12:[address] Patient Name: KASIA MCINTOSH Admission Status: ER Accout number: [id number] Admission Date: 11-17-2019 : 1975 Admission Diagnosis: Attending: JOSE D MONTES DE OCA Current LOS: 1 Anticipated DC Date: 11-18-2019 Planned Disposition: Court\Law Enforcement Primary Insurance: MEDICAID INTERMEDIATE PENDING Discharge Planning Comments: Received discharge orders. [facility] I have called Milena and she states to have nurse call report to [phone], clinical education coordinator informed. Doc to Doc is completed per Mera. Educational Audiologist: Yesi Bangura Patient Name: KASIA MCINTOSH Page 72795 at 1352 All edits/amendments must be made on the electronic document DICTATION DATE: 11/18/[address] WORKER: MARY 11/18/19 1352 RPT#: [id number] DC DATE: STATUS: ADM IN [facility] [address] [place] [address] END OF REPORT
--- NOTE | 2019-11-18 19:00 | NUR ---
EVENING ROUNDS COMPLETE. PT IN DIALYSIS AT THIS TIME.
--- NOTE | 2019-11-18 21:33 | NUR ---
PT TO DISCHARGE BACK TO ASSISTED AT THIS TIME. PT BEING TAKEN VIA WHEEL CHAIR TO DOOR BY JOSE CARLOS AND GABI. PT AAOX4, NO SIGNS OF DISTRESS, PT REQUEST PAIN MEDICATION. EXPLAINED TO PT THAT PAIN MEDICATION CAN NOT BE GIVEN AT DISCHARGE, PT VOICED THAT HE UNDERSTOOD. NO OTHER NEEDS VOICED.
== END 2019-11-18 21:34 | DRG 640 ==
LOC: D.ER 10:06 → D.M2 11:41 → OBSVTIME 11:57 → D.M2 11-17 15:15
PROVIDERS: Family Medicine; ADMIT Internal Medicine Nephrology; ATTEND Internal Medicine Nephrology
PROC: 5A1D70Z Performance of Urinary Filtration, Intermittent, Less than 6 Hours Per Day (ICD-10-PCS; principal; 2019-11-16)
DX: E87.70 Fluid overload, unspecified (principal); J96.01 Acute respiratory failure with hypoxia; N18.6 End stage renal disease; I12.0 Hypertensive chronic kidney disease with stage 5 chronic kidney disease or end stage renal disease; J81.1 Chronic pulmonary edema; I42.9 Cardiomyopathy, unspecified; F32.9 Major depressive disorder, single episode, unspecified; D63.1 Anemia in chronic kidney disease; E11.621 Type 2 diabetes mellitus with foot ulcer; L97.529 Non-pressure chronic ulcer of other part of left foot with unspecified severity; D69.6 Thrombocytopenia, unspecified

== ENCOUNTER 2019-12-28 08:41 | Inpatient (IN) | payer MEDICAID ==
[2019-12-27 22:00] VITALS: BP 87/63
[~2019-12-28] VITALS: Ht 180.3 cm; Wt 88.5 kg
[2019-12-28] VITALS (14 sets, daily range): BP systolic 86–171; BP diastolic 61–106; BMI 27.2
[~2019-12-28 08:41] MED LIST changes: +BUMEX2 MG; +CARDIZEM CD180 MG PO; +CATAPRES0.1 MG; +CLINDAMYCIN HC150 MG; +COREG12.5 MG PO; +DILTIAZEM PO; +HYDRALAZINE HCL50 MG; +KALEXATE454 GM; +LEVOFLOXACIN500 MG; +LISINOPRIL40 MG; +OMEPRAZOLE40 MG; +SODIUM THIOSULFATE; +ULTRAM50 MG; +ZINC50 MG
[2019-12-28] MEDS ORDERED: SENSIPAR30 MG PO (08:52)
[2019-12-28] MEDS ORDERED: KALEXATE454 GM PO (08:53)
[2019-12-28] MEDS ORDERED: NOVOLIN 70/30 110 ML (08:53)
[2019-12-28] MEDS ORDERED: CATAPRES0.1 MG PO (08:54)
[2019-12-28] MEDS ORDERED: ULTRAM50 MG PO (08:55)
[2019-12-28] MEDS ORDERED: BUMEX2 MG PO (08:55)
[2019-12-28] MEDS ORDERED: HYDRALAZINE HCL50 MG PO (08:56)
[2019-12-28] MEDS ORDERED: RENVELA800 MG PO (08:57)
--- NOTE | 2019-12-28 09:20 | NUR ---
PT INTUBATED BY SAMIRA LORD AT THIS TIME. PT GIVEN 150 OF SUCC, 20 OF ETOMIDATE
[2019-12-28 10:31] LABS: CALCIUM 8.7 mg/dL (8.5-10.1); CARBON DIOXIDE 21.3 mmol/L (21.0-32.0); CHLORIDE - SERUM 100 mmol/L (98-107); GLUCOSE 127 mg/dL (74-106); POTASSIUM - SERUM 5.8 mmol/L (3.5-5.1); SODIUM 137 mmol/L (136-145)
[2019-12-28 10:33] LABS: CALC OSMOLALITY 309 mosm/kg (275-300); CREATININE - SERUM 20.8 mg/dL (0.6-1.3); eGFR NON AFRICAN AMERICAN 3 mL/min (90-120)
[2019-12-28 10:35] LABS: APTT 35.6 SECONDS (22.8-39.4); INR 1.21 (0.85-1.17); PROTIME 15.3 SECONDS (11.6-15.0); UREA NITROGEN 109 mg/dL (7-18)
[2019-12-28 10:57] LABS: BASOPHILS 0.5 % (0-2); EOSINOPHILS 0.1 % (0-7); HEMATOCRIT 34.3 % (42.0-54.0); HEMOGLOBIN 11.2 g/dL (13.5-17.5); IMMATURE GRANULOCYTES 0.2 % (0-5); LYMPHOCYTES 10.7 % (15-50); MCH 26.5 pg (26.0-34.0); MCHC 32.7 g/dL (31.0-37.0); MCV 81.1 fL (80.0-100.0); MONOCYTES 4.7 % (2-11); NEUTROPHILS 83.8 % (40-80); RBC 4.23 10x6/uL (4.20-6.10); RDW 15.6 % (11.5-14.5); WBC 8.7 10x3/uL (4.8-10.8)
[2019-12-28 10:58] LABS: PLATELET COUNT 103 10x3/uL (130-400)
[2019-12-28 11:05] LABS: ALBUMIN 3.7 g/dL (3.4-5.0); ALKALINE PHOSPHATASE 171 U/L (30-120); ALT (SGPT) 15 U/L (10-68); BILIRUBIN - TOTAL 0.59 mg/dL (0.2-1.3); PROTEIN - SERUM 7.3 g/dL (6.4-8.2)
[2019-12-28 11:06] LABS: CKMB 0.7 U/L (0.0-3.6); CREATINE KINASE 148 UL (21-232)
[2019-12-28 11:07] LABS: TROPONIN-I 0.245 ng/mL (0.000-0.060)
--- NOTE | 2019-12-28 11:13 | NUR ---
ELEVATED TROPONIN 0.245 AND LACTIC ACID 3.7 REPORTED TO
--- NOTE | 2019-12-28 11:45 | NUR ---
PT ARRIVED TO UNIT ON ER STRETCHER. ACCOMPANIED BY ER STAFF. TRANSFERRED TO ICU BED AND HOOKED UP TO ICU MONITOR. SEDATION INCREASED BECAUSE PT COMBATIVE TRYING TO EXTUBATE HIMSELF. RT IN ROOM SWITCHING PT OVER TO VENT. WILL CONTINUE TO MONITOR
--- NOTE | 2019-12-28 13:15 | NUR ---
CHECKED BLOOD SUGAR. 67. WILL FOLLOW HYPOGLYCEMIC PROTOCOL. RECHECK IN 45 MINUTES. WILL CONTINUE TO MONITOR
--- NOTE | 2019-12-28 14:00 | NUR ---
RECHECKED BLOOD SUGAR. 95 ON POC. WILL CONTINUE TO MONITOR
--- NOTE | 2019-12-28 15:30 | NUR ---
PT RESTING IN BED. REASSESSMETN COMPLETED. PT TRYING TO SIT UP TO REACH ETT. SEDATION INCREASED. VSS. WILL CONTINUE TO MONITOR
--- NOTE | 2019-12-28 17:15 | NUR ---
RT IN ROOM. WILL CONTINUE TO MONITOR
--- NOTE | 2019-12-28 18:20 | NUR ---
LAB CALLED TO REPORT POSITIVE COVID RESULTS. WILL CONTINUE TO MONITOR
--- NOTE | 2019-12-28 22:42 | NUR ---
SET UP EQUIPMENT FOR TX. TRIED TO ACCESS L AVG. ARM VERY COLD, ABSOLUTLY NO BLOOD RETURN. VSS PT SEDATED ON VENT. DR MOAT WAS NOTIFIED.
[2019-12-29] VITALS (24 sets, daily range): BP systolic 87–171; BP diastolic 45–127; Ht 180.3 cm; Wt 88.5 kg
--- NOTE | 2019-12-29 07:00 | NUR ---
PT REPORT RECEIVED FROM LAPPING MACHINE SET UP OPERATOR NURSE. NO ACUTE SIGNS OF DISTRESS NOTED. PT RESTING IN BED. SEDATED AND INTUBATED. SHIFT ASSESSMENT COMPLETED. WILL CONTINUE TO MONITOR
[2019-12-29 07:33] LABS: BASOPHILS 0 % (0-2); EOSINOPHILS 0 % (0-7); HEMATOCRIT 32.7 % (42.0-54.0); HEMOGLOBIN 11.1 g/dL (13.5-17.5); IMMATURE GRANULOCYTES 0.2 % (0-5); LYMPHOCYTES 6.3 % (15-50); MCH 26.4 pg (26.0-34.0); MCHC 33.9 g/dL (31.0-37.0); MONOCYTES 6.1 % (2-11); NEUTROPHILS 87.4 % (40-80); PLATELET COUNT 85 10x3/uL (130-400); RDW 15.6 % (11.5-14.5); WBC 8.4 10x3/uL (4.8-10.8)
[2019-12-29 07:34] LABS: MCV 77.9 fL (80.0-100.0)
[2019-12-29 07:45] LABS: ALBUMIN 3.3 g/dL (3.4-5.0); BILIRUBIN - TOTAL 0.57 mg/dL (0.2-1.3); CALCIUM 9.1 mg/dL (8.5-10.1); CARBON DIOXIDE 18.2 mmol/L (21.0-32.0); PROTEIN - SERUM 6.9 g/dL (6.4-8.2); VANCOMYCIN - RANDOM 15.7 ug/mL (10.0-20.0)
[2019-12-29 07:48] LABS: ANION GAP 26.1 mmol/L (8-16); CREATININE - SERUM 22.6 mg/dL (0.6-1.3)
[2019-12-29 07:50] LABS: POTASSIUM - SERUM 6.3 mmol/L (3.5-5.1)
--- NOTE | 2019-12-29 09:00 | NUR ---
PT HAD BM. CLEANED UP AND LINENS CHANGED. PT TOLERATED WELL. WILL CONTINUE TO MONITOR
--- NOTE | 2019-12-29 11:15 | NUR ---
PT REASSESSMENT COMPLETED. NO ACUTE SIGNS OF DISTRESS NOTED. WILL CONTINUE TO MONITOR
--- NOTE | 2019-12-29 13:00 | NUR ---
PT HAD SMALL BM. CLEANED UP AND LINENS CHANGED. WILL CONTINUE TO MONTIOR
--- NOTE | 2019-12-29 13:58 | MORECARE ---
CASE MANAGEMENT DISCHARGE SUMMARY PATIENT: KASIA MCINTOSH UNIT: [id number] ADM DATE: 12/28/19 AGE: 44 : 79 SEX: M ROOM/BED: D.2314 AUTHOR: ELISSA VASQUEZ PHYSICIAN: REFERRING PHYSICIAN: SHAQUILLE MONTES DE OCA MD DATE OF SERVICE: 12/29/19 Discharge Plan Patient Name: KASIA MCINTOSH Facility: [facility]:[place] : 1975 Planned Disposition: Court\Law Enforcement Anticipated Discharge Date: Discharge Date: Expected LOS: Initial Reviewer: [email or web address] Initial Review Date: 12/28/2019 Generated: 12/29/19 2:58 pm Comments DCP- Discharge Planning Updated by [email or web address]: Shauna Kim on 12/29/19 12:[address] Patient Name: KASIA MCINTOSH Admission Status: ER Accout number: [id number] Admission Date: 12-28-2019 : 1975 Admission Diagnosis:COVID-19 Attending: Shaquille Montes De Oca Current LOS: 1 Anticipated DC Date: Planned Disposition: Court\Law Enforcement Primary Insurance: MEDICAID LONGTERM PENDING Discharge Planning Comments: PATIENT IS AN [facility] IN[facility]ATE AT [facility] AND WILL RETURN THERE UPON DISCHARGE. GUARD AT BEDSIDE. Land Leasing Information Clerk: Shauna Kim DCPIA - Discharge Planning Initial Assessment Updated by [email or web address]: Shauna Kim on 12/29/19 1:55 pm * Is the patient Alert and Oriented? No * PCP [facility] IN[facility]ATE * Pharmacy [facility] * Preadmission Environment Other * Other Environment LONGTERM * Facility Name [facility] * Equipment None * List name and contact numbers for known caregivers / representatives who currently or will assist patient after discharge: [facility] IN[facility]ATE * Community resources currently utilized None * Additional services required to return to the preadmission environment? No * Can the patient safely return to the preadmission environment? Yes * Has this patient been hospitalized within the prior 30 days at any hospital? No Patient Name: KASIA MCINTOSH Page [id number] at 1358 All edits/amendments must be made on the electronic document DICTATION DATE: 12/29/19 1358 BUMPER MACHINE OPERATOR: DM 12/29/19 1358 RPT#: [id number] DC DATE: STATUS: ADM IN [facility] [address] [place] [address] END OF REPORT
--- NOTE | 2019-12-29 14:02 | NUR ---
PAGED DR KRAFT TO PLACE TRIALYSIS CATHETER. WAITING FOR CALL BACK
--- NOTE | 2019-12-29 15:11 | NUR ---
SPOKE WITH [facility] TO TRY TO OBTAIN CONSENT FOR CENTRAL LINE PLACEMENT. UNABLE TO CONTACT ANY FAMILY MEMBERS TO GET CONSENT. [facility] FACULTY STATED THAT SINCE WE ARE UNABLE TO REACH ANY FAMILY, TO FOLLOW HOSPITAL POLICY. [facility] NUMBER OBTAINED [phone]
--- NOTE | 2019-12-29 15:16 | NUR ---
SPOKE WITH RUFUS AT THE SURGERY OFFICE. NOTIFIED HER DR KRAFT DID NOT PAGE BACK. STATED SHE WOULD TRY TO GET HIM TO CALL.
--- NOTE | 2019-12-29 16:00 | NUR ---
DR KRAFT IN ROOM. UNABLE TO START CENTRAL LINE. AV FISTULA IN RT LEG. WANTS DIALYSIS TO SEE IF IT IS USABLE. IF NOT HE STATED HE WILL COME BACK AND TRY AGAIN.
--- NOTE | 2019-12-29 17:56 | NUR ---
DIALYSIS NURSE IN ROOM. PT RESTING IN BED. NO COMPLAINTS NOTED AT THIS TIME. WILL CONTINUE TO MONITOR
[2019-12-30] VITALS (12 sets, daily range): BP systolic 106–156; BP diastolic 68–117
--- NOTE | 2019-12-30 07:00 | NUR ---
REPORT RECEIVED FROM PETROLEUM PRODUCTION ENGINEER NURSE. PT SELF EXTUBATED DURING THE NIGHT. GUARD OUTSIDE OF ROOM. SHIFT ASSESSMENT COMPLETED. ASKING ABOUT WANTS TO EAT. WILL CONTINUE TO MONITOR
--- NOTE | 2019-12-30 09:22 | NUR ---
PT RESTING IN BED. NO COMPLAINTS NOTED AT THIS TIME. STILL STATES HE IS HUNGRY. WAITING ON SPEECH EVAL. WILL CONTINUE TO MONITOR
--- NOTE | 2019-12-30 11:26 | NUR ---
DR MOTA AT BEDSIDE. UPDATE GIVEN. NEW ORDERS RECEIVED. WILL CONTINUE TO MONITOR
[2019-12-30] MEDS ORDERED: OMNICEF300 MG PO (12:39)
[2019-12-30] MEDS ORDERED: DECADRON4 MG PO (12:41)
[2019-12-30 13:02] LABS: CALCIUM 8.5 mg/dL (8.5-10.1); CARBON DIOXIDE 24.3 mmol/L (21.0-32.0); CREATININE - SERUM 16.9 mg/dL (0.6-1.3)
[2019-12-30 13:52] LABS: POTASSIUM - SERUM 4.3 mmol/L (3.5-5.1)
--- NOTE | 2019-12-30 13:53 | NUR ---
CALLED REPORT TO [facility]. PREPARING TO TRANSFER
--- NOTE | 2019-12-30 17:20 | MORECARE ---
CASE MANAGEMENT DISCHARGE SUMMARY PATIENT: KASIA MCINTOSH UNIT: [id number] ADM DATE: 12/28/19 AGE: 44 : [birth year] SEX: M ROOM/BED: D.2314 AUTHOR: ELISSA VASQUEZ PHYSICIAN: REFERRING PHYSICIAN: SHAQUILLE MONTES DE OCA MD DATE OF SERVICE: 12/30/19 Discharge Plan Patient Name: KASIA MCINTOSH Facility: [facility]:[place] : 1975 Planned Disposition: Court\Law Enforcement Anticipated Discharge Date: 12/30/19 Discharge Date: Expected LOS: 2 Initial Reviewer: [email or web address] Initial Review Date: 12/28/2019 Generated: 12/30/19 6:20 pm DCP- Discharge Planning Updated by [email or web address]: Shauna Kim on 12/29/19 12:[address] Patient Name: KASIA MCINTOSH Admission Status: ER Accout number: [id number] Admission Date: 12-28-2019 : 1975 Admission Diagnosis:COVID-19 Attending: Shaquille Montes De Oca Current LOS: 1 Anticipated DC Date: Planned Disposition: Court\Law Enforcement Primary Insurance: MEDICAID RETIREMENT PENDING Discharge Planning Comments: PATIENT IS AN ADC INMATE AT [facility] AND WILL RETURN THERE UPON DISCHARGE. GUARD AT BEDSIDE. Patent Prosecution Paralegal: Shauna Kim DCPIA - Discharge Planning Initial Assessment Updated by [email or web address]: Shauna Kim on 12/29/19 1:55 pm * Is the patient Alert and Oriented? No * PCP ADC INMATE * Pharmacy [facility] * Preadmission Environment Other * Other Environment RETIREMENT * Facility Name [facility] * Equipment None * List name and contact numbers for known caregivers / representatives who currently or will assist patient after discharge: [facility] INMATE * Community resources currently utilized None * Additional services required to return to the preadmission environment? No * Can the patient safely return to the preadmission environment? Yes * Has this patient been hospitalized within the prior 30 days at any hospital? No Last DP export: 12/29/19 12:58 p Patient Name: KASIA MCINTOSH Page 89826 at 1720 All edits/amendments must be made on the electronic document DICTATION DATE: 12/30/191719 SUPERVISOR DOCK: MARY 12/30/191719 RPT#: [id number] DC DATE: STATUS: ADM IN [facility] [address] [place] [address] END OF REPORT
--- NOTE | 2019-12-30 17:27 | MORECARE ---
CASE MANAGEMENT DISCHARGE SUMMARY PATIENT: KASIA MCINTOSH UNIT: [id number] ADM DATE: 12/28/19 AGE: 44 : 79 SEX: M ROOM/BED: D.2314 AUTHOR: ELISSA VASQUEZ PHYSICIAN: REFERRING PHYSICIAN: SHAQUILLE MONTES DE OCA MD DATE OF SERVICE: 12/30/19 Discharge Plan Patient Name: KASIA MCINTOSH [facility] [facility] 1975 Planned Disposition: Court\Law Enforcement Anticipated Discharge Date: 12/30/19 Discharge Date: Expected LOS: 2 Initial Reviewer: [email or web address] Initial Review Date: 12/28/2019 Generated: 12/30/19 6:26 pm Comments DCP- Discharge Planning Updated by [email or web address]: Keri Borden on 12/30/19 4:[address] PLAN FOR THE PATIENT TO BE TRANSFERED BACK TO [facility] TODAY. CM PROVIDED PHONE NUMBER TO ICU CHARGE NURSE FOR [facility] HOSPITAL UNIT FOR MD TO MD COMMUNICATION AND NURSING REPORT. DCP- Discharge Planning Updated by [email or web address]: Shauna Kim on 12/29/19 12:[address] Patient Name: KASIA MCINTOSH Admission Status: ER Accout number: [id number] Admission Date: 12-28-2019 : 1975 Admission Diagnosis:COVID-19 Attending: Shaquille Montes De Oca Current LOS: 1 Anticipated DC Date: Planned Disposition: Court\Law Enforcement Primary Insurance: MEDICAID LONGTERM PENDING Discharge Planning Comments: PATIENT IS AN ADC INMATE AT [facility] AND WILL RETURN THERE UPON DISCHARGE. GUARD AT BEDSIDE. Resaw Feeder: Shauna Kim DCPIA - Discharge Planning Initial Assessment Updated by [id number]: Shauna Kim on 12/29/19 1:55 pm * Is the patient Alert and Oriented? No * PCP [facility]ATE * Pharmacy [facility] * Preadmission Environment Other * Other Environment LONGTERM * Facility Name [facility] * Equipment None * List name and contact numbers for known caregivers / representatives who currently or will assist patient after discharge: ADC INMATE * Community resources currently utilized None * Additional services required to return to the preadmission environment? No * Can the patient safely return to the preadmission environment? Yes * Has this patient been hospitalized within the prior 30 days at any hospital? No Last DP export: 12/30/19 4:20 pm Patient Name: KASIA MCINTOSH Page 24917 at 1727 All edits/amendments must be made on the electronic document DICTATION DATE: 12/30/191725 STAFFING MANAGER: MARY 12/30/191725 RPT#: [id number] DC DATE: STATUS: ADM IN [facility] [address] [place] [address] END OF REPORT
--- NOTE | 2019-12-30 17:31 | NUR ---
PT DC/D AT 2165 VIA WHEEL CHAIR, GUARD AT SIDE
== END 2019-12-30 17:31 | DRG 208 ==
LOC: D.ER 08:41 → D.ICU 10:44
PROVIDERS: Family Medicine; ADMIT Internal Medicine Nephrology; ATTEND Internal Medicine Nephrology
PROC: 5A1945Z Respiratory Ventilation, 24-96 Consecutive Hours (ICD-10-PCS; principal; 2019-12-28)
PROC: 0BH17EZ Insertion of Endotracheal Airway into Trachea, Via Natural or Artificial Opening (ICD-10-PCS; 2019-12-28)
DX: U07.1 COVID-19 (principal); J12.89 Other viral pneumonia; N18.6 End stage renal disease; J96.01 Acute respiratory failure with hypoxia; G93.41 Metabolic encephalopathy; J90 Pleural effusion, not elsewhere classified; Z91.15 Patient's noncompliance with renal dialysis

== ENCOUNTER → 2020-02-17 05:09 | Day surgery (SDC) | payer OTHER ==
[2019-12-29 14:31] VITALS: BMI 27.2
--- NOTE | ~2020-02-17 | OP ---
PATIENT NAME: KASIA MCINTOSH MEDICAL RECORD: [id number] :[birth year] LOCATION:D.OPS ADMISSION DATE: SURGEON: SONA ROCK MD DATE OF OPERATION: 02/17/2020 An operation did not occur today. The patient had not had a negative COVID test. He was returned back to the half-way. No operative procedure was performed on this day. TRANSINT:[id number] Voice Confirmation ID: [id number] DOCUMENT ID: [id number] SONA ROCK MD CC: [id number] DICTATION DATE: 03/10/20 1104 SCALLOP BINDER: 03/10/20 1150 [facility] [place] 02/17/20 [place] [id number] [place] [id number]
[~2020-02-17 05:09] MED LIST changes: +CATAPRES0.1 MG PO; +DECADRON4 MG PO; +KALEXATE454 GM PO; +MONODOX100 MG PO; +NOVOLIN 70/30 110 ML; +OMNICEF300 MG PO
[2020-02-17 07:08] LABS: ANION GAP 16.9 mmol/L (8-16); CALCIUM 10.5 mg/dL (8.5-10.1); CARBON DIOXIDE 23.7 mmol/L (21.0-32.0); CREATININE - SERUM 9.6 mg/dL (0.6-1.3); POTASSIUM - SERUM 5.6 mmol/L (3.5-5.1)
[2020-02-17 07:52] LABS: BASOPHILS 0.5 % (0-2); EOSINOPHILS 0.9 % (0-7); HEMATOCRIT 20.3 % (42.0-54.0); IMMATURE GRANULOCYTES 0.4 % (0-5); LYMPHOCYTES 9.4 % (15-50); MCH 24.2 pg (26.0-34.0); MCHC 31.5 g/dL (31.0-37.0); MCV 76.6 fL (80.0-100.0); MEAN PLATELET VOLUME 9.6 fL (7.4-10.4); MONOCYTES 7.9 % (2-11); NEUTROPHILS 80.9 % (40-80); RBC 2.65 10x6/uL (4.20-6.10); RDW 16.8 % (11.5-14.5); WBC 7.6 10x3/uL (4.8-10.8)
[2020-02-17 07:53] LABS: PLATELET COUNT 290 10x3/uL (130-400)
[2020-02-17 07:55] LABS: HEMOGLOBIN 6.4 g/dL (13.5-17.5)
== END | disposition home or self-care (01) ==
LOC: D.OPS 05:09
PROVIDERS: ATTEND Surgery
DX: L03.116 Cellulitis of left lower limb (principal); Z53.9 Procedure and treatment not carried out, unspecified reason

== ENCOUNTER 2020-02-26 09:52 | Day surgery (SDC) | payer OTHER ==
[~2020-02-26] VITALS: Ht 180.3 cm; Wt 88.5 kg
[~2020-02-26 09:52] MED LIST changes: -MONODOX100 MG PO
[2020-02-26] MEDS ORDERED: MONODOX100 MG PO (10:24)
[2020-02-26 10:33] VITALS: BP 159/89; Ht 180.3 cm; Wt 88.5 kg
[2020-02-26 11:05] LABS: BASOPHILS 1.7 % (0-2); EOSINOPHILS 3.1 % (0-7); HEMATOCRIT 26.8 % (42.0-54.0); HEMOGLOBIN 8.5 g/dL (13.5-17.5); IMMATURE GRANULOCYTES 0.2 % (0-5); MCH 25.4 pg (26.0-34.0); MCHC 31.7 g/dL (31.0-37.0); MEAN PLATELET VOLUME 9.6 fL (7.4-10.4); MONOCYTES 17.4 % (2-11); NEUTROPHILS 66.6 % (40-80); PLATELET COUNT 244 10x3/uL (130-400); RBC 3.35 10x6/uL (4.20-6.10); RDW 17.9 % (11.5-14.5); WBC 4.2 10x3/uL (4.8-10.8)
[2020-02-26 11:20] LABS: ANION GAP 12.2 mmol/L (8-16); CALCIUM 9.9 mg/dL (8.5-10.1); CARBON DIOXIDE 30.1 mmol/L (21.0-32.0); POTASSIUM - SERUM 4.3 mmol/L (3.5-5.1)
[2020-02-26 12:46] LABS: APTT 35.2 SECONDS (22.8-39.4)
[2020-02-26 12:48] LABS: INR 1.19 (0.85-1.17); PROTIME 15.1 SECONDS (11.6-15.0)
--- NOTE | 2020-02-26 18:28 | NUR ---
173 SURGERY CANCELLED AND IV REMOVED AND PT EATING A REGULAR RENAL DM DIET. BARB TORRES, 183 PT AND LAW ENFORCEMENT LEFT AT 1830
== END 2020-02-26 18:30 ==
LOC: D.OPS 09:52
PROVIDERS: Anesthesiology; ATTEND Surgery
DX: L03.119 Cellulitis of unspecified part of limb (principal); E83.59 Other disorders of calcium metabolism; Z53.9 Procedure and treatment not carried out, unspecified reason; N18.6 End stage renal disease; Z99.2 Dependence on renal dialysis

== ENCOUNTER → 2020-04-06 | Emergency (ER) | payer OTHER ==
[~2020-04-06] VITALS: Ht 180.3 cm; Wt 100.0 kg
[~2020-04-06] MED LIST changes: +MONODOX100 MG PO
[2020-04-06 13:52] LABS: BASOPHILS 0.9 % (0-2); EOSINOPHILS 1.9 % (0-7); HEMATOCRIT 28.7 % (42.0-54.0); HEMOGLOBIN 9.4 g/dL (13.5-17.5); IMMATURE GRANULOCYTES 0.3 % (0-5); MCH 25.1 pg (26.0-34.0); MCHC 32.8 g/dL (31.0-37.0); MCV 76.7 fL (80.0-100.0); NEUTROPHILS 77.9 % (40-80); RBC 3.74 10x6/uL (4.20-6.10); RDW 17.8 % (11.5-14.5); WBC 7.5 10x3/uL (4.8-10.8)
[2020-04-06 13:59] LABS: PLATELET COUNT 152 10x3/uL (130-400)
[2020-04-06 14:06] LABS: ALBUMIN 3.1 g/dL (3.4-5.0); ANION GAP 20.3 mmol/L (8-16); APTT 25.4 SECONDS (22.8-39.4); BILIRUBIN - TOTAL 0.39 mg/dL (0.2-1.3); CARBON DIOXIDE 22.1 mmol/L (21.0-32.0); CREATININE - SERUM 12.5 mg/dL (0.6-1.3); INR 1.12 (0.85-1.17); PROTEIN - SERUM 7.3 g/dL (6.4-8.2); PROTIME 14.4 SECONDS (11.6-15.0)
[2020-04-06 14:08] LABS: POTASSIUM - SERUM 6.4 mmol/L (3.5-5.1)
[2020-04-06 14:58] VITALS: Ht 180.3 cm; Wt 100.0 kg
[2020-04-06 17:00] VITALS: BP 136/74
== END | disposition home or self-care (01) ==
LOC: D.ER 12:28
PROVIDERS: Family Medicine
DX: E87.5 Hyperkalemia (principal); I87.8 Other specified disorders of veins; M79.605 Pain in left leg; I12.0 Hypertensive chronic kidney disease with stage 5 chronic kidney disease or end stage renal disease; N18.6 End stage renal disease; R58 Hemorrhage, not elsewhere classified

== ENCOUNTER → 2020-09-02 11:15 | Outpatient (CLI) | payer OTHER ==
[2020-04-06 14:58] VITALS: BMI 30.7
== END | disposition home or self-care (01) ==
LOC: D.US 08-18 13:00
PROVIDERS: ATTEND Surgery
DX: I87.2 Venous insufficiency (chronic) (peripheral) (principal)

== ENCOUNTER 2020-11-25 06:41 | Observation (INO) | payer MEDICAID ==
[~2020-11-25] VITALS: Ht 180.3 cm; Wt 101.2 kg
[2020-11-25 07:13] LABS: BASOPHILS 2.3 % (0-2); EOSINOPHILS 2.6 % (0-7); HEMATOCRIT 22.8 % (42.0-54.0); LYMPHOCYTES 15.7 % (15-50); MCH 27.7 pg (26.0-34.0); MCHC 32.6 g/dL (31.0-37.0); MCV 84.9 fL (80.0-100.0); MEAN PLATELET VOLUME 8.9 fL (7.4-10.4); NEUTROPHILS 69.4 % (40-80); RBC 2.68 10x6/uL (4.20-6.10); RDW 15.3 % (11.5-14.5)
[2020-11-25 07:22] LABS: ANION GAP 24.3 mmol/L (8-16); CARBON DIOXIDE 21.8 mmol/L (21.0-32.0); CREATININE - SERUM 16.4 mg/dL (0.6-1.3)
[2020-11-25 07:25] LABS: PLATELET COUNT 202 10x3/uL (130-400)
[2020-11-25 07:26] LABS: HEMOGLOBIN 7.4 g/dL (13.5-17.5)
[2020-11-25 07:36] LABS: POTASSIUM - SERUM 6.1 mmol/L (3.5-5.1)
--- NOTE | 2020-11-25 09:48 | NUR ---
SPOKE WITH HALLEY SHAY APN, PT TO HAVE DIALYSIS BEFORE SURGERY.
[2020-11-25 10:04] VITALS: BP 154/95; BMI 31.1
[2020-11-25 10:07] LABS: APTT 29.6 SECONDS (22.8-39.4); INR 1.11 (0.85-1.17); PROTIME 13.2 SECONDS (11.6-15.0)
[2020-11-25] MEDS ORDERED: XALATAN 0.0052.5 ML (10:31)
[2020-11-25] MEDS ORDERED: ULTRAM50 MG (10:31)
--- NOTE | 2020-11-25 13:46 | NUR ---
VS 144/80-87-18-98% SAT. STILL AWAITING PROCEDURE. BUMEX GIVEN ORDERED I
[2020-11-25 18:28] LABS: BASOPHILS 2.7 % (0-2); EOSINOPHILS 2.3 % (0-7); MCH 27.5 pg (26.0-34.0); MCHC 32.6 g/dL (31.0-37.0); MCV 84.5 fL (80.0-100.0); MEAN PLATELET VOLUME 8.5 fL (7.4-10.4); PLATELET COUNT 214 10x3/uL (130-400); RDW 15.6 % (11.5-14.5); WBC 7.5 10x3/uL (4.8-10.8)
--- NOTE | 2020-11-25 19:07 | NUR ---
PT ARRIVED TO PACU WITH BLOOD INFUSING VIA DRIP CHAMBER. SEE VITAL SIGN FLOWSHEET. PT IS a&OX4.
--- NOTE | 2020-11-25 19:07 | NUR ---
JAY VIDALES JUST GAVE 10MG OF LABETALOL IV AT THIS TIME WHEN ARRIVING IN PACU.
[2020-11-25 19:09] LABS: HEMOGLOBIN 7.2 g/dL (13.5-17.5)
--- NOTE | 2020-11-25 19:30 | NUR ---
V.O FROM TO GIVE 0.3MG OF CLONIDINE PO NOW FOR BP. V.O READ BACK CORRECT.
--- NOTE | 2020-11-25 20:18 | NUR ---
PT TO ROOM FROM PACU, NO DISTRESS
[2020-11-25 20:50] VITALS: BP 149/101
[2020-11-25 20:58] VITALS: BP 160/83
--- NOTE | 2020-11-26 00:14 | NUR ---
NO DIALYSIS ACCESS FROM PROCEDURE TODAY, RECEIVED ORDERS FOR ELEVATED K+. PT NOW RESTING, GUARD AT BEDSIDE. ALL DRESSINGS C/D/I. TELEMETRY ON 70'S. NO ACUTE DISTRESS. WILL CTM.
[2020-11-26 00:16] VITALS: BP 133/81
[2020-11-26 04:30] VITALS: BP 140/84
--- NOTE | 2020-11-26 07:20 | NUR ---
Lying in bed, awake/alert/oriented, T/R self ad jaime, cont of B/B with BRPs per self ad jaime, c/o sharp aching pain rated 7/10, medicated as ordered (see MAR), call light/phone/water within reach, no s/s of acute distress observed.
[2020-11-26 07:27] LABS: BASOPHILS 1.8 % (0-2); EOSINOPHILS 2.3 % (0-7); HEMATOCRIT 21.7 % (42.0-54.0); LYMPHOCYTES 11.3 % (15-50); MCH 28.1 pg (26.0-34.0); MCHC 34.1 g/dL (31.0-37.0); MEAN PLATELET VOLUME 8.3 fL (7.4-10.4); NEUTROPHILS 75.6 % (40-80); RBC 2.62 10x6/uL (4.20-6.10); RDW 15.8 % (11.5-14.5)
[2020-11-26 07:35] LABS: CALCIUM 8.2 mg/dL (8.5-10.1); CREATININE - SERUM 17.3 mg/dL (0.6-1.3)
--- NOTE | 2020-11-26 07:36 | NUR ---
Electricity Trader Chelsey called Hgb of 7.1, paged Dr. Carroll
[2020-11-26 07:37] LABS: HEMOGLOBIN 7.4 g/dL (13.5-17.5); MCV 82.5 fL (80.0-100.0); PLATELET COUNT 165 10x3/uL (130-400)
--- NOTE | 2020-11-26 07:44 | NUR ---
Dr. Carroll updated, N.O. to dialize and give 2 units PRBCs.
[2020-11-26 08:13] VITALS: BP 129/87
--- NOTE | 2020-11-26 08:23 | NUR ---
JESSIE Orellana gave N.O. to hold blood until renal access can be placed and he can dialyze. May be given when dialized.
--- NOTE | 2020-11-26 08:37 | NUR ---
Sander [employer] MARILU called critical Phosphorus 10.7/BUN 103/K+ 7.0
[2020-11-26 08:38] LABS: PHOSPHOROUS 10.7 mg/dL (2.5-4.9)
--- NOTE | 2020-11-26 08:40 | NUR ---
Dr. Fernandez aware of criticals
--- NOTE | 2020-11-26 10:25 | NUR ---
Off unit for dialysis
[2020-11-26 14:29] VITALS: Ht 180.3 cm; Wt 101.2 kg
--- NOTE | 2020-11-26 15:10 | NUR ---
Returned to room at this time.
[2020-11-26 15:58] VITALS: BP 124/74
--- NOTE | 2020-11-26 18:50 | NUR ---
Attempted to call report to [facility], no one answered x 2 attempts
--- NOTE | 2020-11-26 19:06 | HP ---
PATIENT: KASIA MCINTOSH MEDICAL RECORD: [id number] ACCOUNT: [id number] LOCATION:[address] : [birth year] ADMISSION DATE: 11/25/20 PCP: SYLVIA YU HISTORY AND PHYSICAL EXAMINATION HISTORY OF PRESENT ILLNESS: The patient has a clotted right thigh loop arteriovenous graft. He is here for thrombectomy and revision. Unfortunately, his potassium is 6.1 and at that level he is not able to undergo general anesthesia, so we are going to have to do this under local with sedation. The risks, possible complications, and alternatives of procedure were explained to the patient. He elects to proceed. PAST MEDICAL AND SURGICAL HISTORY: Venous insufficiency, secondary hyperparathyroidism, hypertension, multiple dialysis access procedures. ALLERGIES: AMOXICILLIN, WHICH CAUSES A RASH. MEDICATIONS AT THE HALF-WAY: Reviewed. REVIEW OF SYSTEMS: Negative for depression. No headache. Positive for lower extremity edema. No sweats. No emesis. He does have chronic kidney disease. He also is on dialysis. I am fearful that with a potassium of 6.1, if we were to wait until Saturday to dialyze him that his potassium would be 8 or 9 and for that reason, he will stay the night and undergo hemodialysis in the morning. Other review of systems is negative other than as described above. PHYSICAL EXAMINATION: GENERAL: The patient does not appear acutely ill. He does appear chronically ill. HEENT: Extraocular movements are not intact and he does have disconjugate gaze. CARDIOVASCULAR: Regular rate and rhythm. PULMONARY: Nonlabored. EXTREMITIES: No thrill or bruit over the right groin, looped AV graft fistula. IMPRESSION: Arteriovenous graft fistula revision, possible HemoSplit. PLAN: As described above. TRANSINT:[id number] Voice Confirmation ID: [id number] DOCUMENT ID: [id number] SONA ROCK MD at 1906 CC: [id number] DICTATION DATE: 11/25/201917 DIRECTOR CREDIT RISK: 11/25/201999 ADM IN [place] [address] [place] [address]
--- NOTE | 2020-11-26 20:24 | NUR ---
attempted to call report to number handed off from day shift nurse [phone].
[2020-11-26 20:25] VITALS: BP 150/80
--- NOTE | 2020-11-27 11:58 | DS ---
PATIENT:KASIA MCINTOSH :[birth year] MEDICAL RECORD: [id number] DISCHARGE SUMMARY ADMISSION DATE: 11/25/20 DISCHARGE DATE: 11/26/20 PRINCIPAL DIAGNOSIS: Clotted right thigh looped AV graft fistula. PROCEDURE: Catheter thrombectomy, fistulogram, covered stent placement, open catheter thrombectomy with revision, and balloon angioplasty of the arterial anastomosis. OTHER DIAGNOSES: Hyperkalemia, hyperphosphatemia, anemia requiring transfusion, hypertension. The patient is a challenging dialysis access situation. He was brought to the Emergency Room from the group home. He could not undergo general anesthesia due to hyperkalemia. He underwent local with IV sedation. The graft revision was very challenging. I was unable to place a right upper HemoSplit catheter. I was essentially "jailed out" of the subclavian vein due to the stents. Under ultrasound, the right internal jugular vein appears to terminate inferior to the right clavicular head. The following day, the nurses were able to access the graft. He underwent a blood transfusion as well as dialysis. I have done the doc-to-doc conversation with Dr. Larkin. He is being transferred back to the group home. There is no need for the patient to see me in the office unless he develops a complication related to this operative procedure. TRANSINT:[id number] Voice Confirmation ID: [id number] DOCUMENT ID: [id number] SONA ROCK MD at 1158 CC: ARCADIO LARKIN MD [id number] DICTATION DATE: 11/26/201909 SENIOR DATABASE ENGINEER: 11/27/20 0006 DIS IN 11/26/20 [facility] [address] [place] [id number]
--- NOTE | 2020-12-26 10:06 | OP ---
PATIENT NAME: KASIA MCINTOSH MEDICAL RECORD: [id number] :79 LOCATION:D.M2 D.2109 ADMISSION DATE:11/25/20 SURGEON: NEAL ROCK MD DATE OF OPERATION: 11/25/2020 PREOPERATIVE DIAGNOSIS: Clotted right thigh looped arteriovenous graft fistula. POSTOPERATIVE DIAGNOSES: 1. Clotted right thigh looped arteriovenous graft fistula with inability to access the graft through a percutaneous technique; therefore, an open technique was utilized. 2. Stenosis of the arterial anastomosis. PROCEDURES: 1. Covered stent placement, fluency. 2. Open catheter thrombectomy. 2. AngioJet mechanical thrombolysis. 3. Balloon angioplasty of arterial anastomosis. 4. Fistulogram. 5. Selective common femoral arteriogram. SURGEON: Neal Rock MD INDUSTRIAL TECH INSTRUCTOR: None. BLOOD LOSS: Please see the anesthesia sheet. The risks, possible complications, and alternatives of the procedure were explained to the patient. He elects to proceed. DESCRIPTION OF PROCEDURE: The patient was conveyed to the operating room electively on 11/25/2020. General anesthesia was induced by the anesthesia staff. The right thigh was sterilely prepped and draped. Under ultrasonographic guidance, I attempted to percutaneously access the graft in an antegrade fashion and in a retrograde fashion and the graft was heavily calcified and I was unable to access the graft percutaneously. Therefore, cutdowns were placed on either side of the loop graft. Control was obtained with vessel loops as well as vascular clamps. I performed a catheter thrombectomy through a graftotomy on the arterial end of the graft. On the venous end of the graft, I utilized a 6-Greenlandic sheath. After the catheter thrombectomy, I utilized a cross wires technique to perform an AngioJet mechanical thrombolysis. The catheter that I used was a 5-Greenlandic Krystle. Mechanical AngioJet thrombolysis was performed. A nonselective fistulogram was performed. This revealed a further clot burden. Again, I advanced the Krystle catheters and performed a rethrombectomy as well as I also performed AngioJet mechanical thrombolysis through the antegrade graftotomy as well as through the retrograde 6-Greenlandic sheath. There was a very poor inflow. Through the retrograde sheath over the 0.035 Glidewire, I advanced a 4-Greenlandic diagnostic catheter into the common femoral artery. A selective common femoral arteriogram was performed and this revealed a stenosis, which was tight stenosis of the arterial anastomosis. I then changed out the diagnostic catheter for the wire. Over the wire, I advanced a long 6-mm balloon angioplasty of the arterial anastomosis to a 6 mm times 3 minutes. The angioplasty balloon was removed. A subsequent nonselective fistulogram revealed patency of the arterial anastomosis with about 20% residual stenosis. I then went about removing the sheath. A OPERATIVE REPORT [id number] KASIA MCINTOSH pursestring suture was placed on the graft and this was a 4-0 Prolene. The sheath was removed. I cinched down on 4-0 Prolene. Hemostasis was immediate. Through the graftotomy things were much more difficult. As I was trying to close the graftotomy with 4-0 Prolene, the graft essentially was falling apart. I did the best I could in closing the graftotomy transversely. I released control with vascular clamps and there was bleeding through the repair. I then regained control with vascular clamps and applied BioGlue over the repair. I then released control on the graft and again there was bleeding out through the repair. I went around to the site where I had accessed the graft through the sheath. I removed the Prolene suture. The sheath was then readvanced. An 0.035 Glidewire was readvanced. I then removed the sheath. Utilizing a sheathless technique, a Fluency stent was advanced and deployed in order to seal the graft repair from the inside. This was a covered graft and it was a 7-mm graft. Hemostasis was immediate. I advanced a 7-mm balloon and angioplastied the Fluency stent. The angioplasty balloon was removed. The sheath was then readvanced. At the sheath site, I placed another 4-0 Prolene in a pursestring manner. The sheath was removed. I tied down the pursestring suture. Hemostasis was immediate. There was flow within the graft. I can feel a thrill. Both incisions were closed in 2 layers. Interrupted 3-0 Vicryl for the deep dermis as well as interrupted 4-0 Vicryl for the skin. Sterile dressings were applied. The patient was then conveyed to post-anesthesia care unit where he was in stable condition. We are going to see if we access the graft, if not, he is going to require a HemoSplit which is going to be a challenge. TRANSINT:[id number] Voice Confirmation ID: [id number] DOCUMENT ID: [id number] NEAL ROCK MD at 1006 CC: [id number] DICTATION DATE: 12/26/20708 TAR LEVELER: 12/26/20 0852 DIS IN 11/26/20 [facility] [address] [id number]
== END 2020-11-26 22:55 ==
LOC: D.OPS 06:41 → OBSVTIME 15:00 → D.M2 15:00
PROVIDERS: Anesthesiology; Internal Medicine Nephrology; ADMIT Surgery; ATTEND Surgery
DX: T82.898A Other specified complication of vascular prosthetic devices, implants and grafts, initial encounter (principal); E87.5 Hyperkalemia; D64.9 Anemia, unspecified; E21.3 Hyperparathyroidism, unspecified; Z99.2 Dependence on renal dialysis; I12.0 Hypertensive chronic kidney disease with stage 5 chronic kidney disease or end stage renal disease; N18.6 End stage renal disease

== ENCOUNTER 2020-12-01 11:00 | Inpatient (IN) | payer MEDICAID ==
[~2020-12-01] VITALS: Ht 180.3 cm; Wt 109.2 kg
[~2020-12-01 11:00] MED LIST changes: +XALATAN 0.0052.5 ML
[2020-12-01 11:48] LABS: BASOPHILS 0.6 % (0-2); EOSINOPHILS 2.8 % (0-7); HEMATOCRIT 23.8 % (42.0-54.0); HEMOGLOBIN 7.7 g/dL (13.5-17.5); MCHC 32.6 g/dL (31.0-37.0); MEAN PLATELET VOLUME 7.7 fL (7.4-10.4); MONOCYTES 10.2 % (2-11); NEUTROPHILS 73.4 % (40-80); PLATELET COUNT 162 10x3/uL (130-400); RBC 2.87 10x6/uL (4.20-6.10); RDW 15.2 % (11.5-14.5)
[2020-12-01 12:01] LABS: ALBUMIN 3.4 g/dL (3.4-5.0); ANION GAP 22.5 mmol/L (8-16); BILIRUBIN - TOTAL 0.34 mg/dL (0.2-1.3); CALCIUM 8.8 mg/dL (8.5-10.1); CARBON DIOXIDE 18.3 mmol/L (21.0-32.0); CREATININE - SERUM 18.2 mg/dL (0.6-1.3); PROTEIN - SERUM 7.2 g/dL (6.4-8.2)
[2020-12-01 12:05] LABS: POTASSIUM - SERUM 6.8 mmol/L (3.5-5.1)
--- NOTE | 2020-12-01 12:05 | NUR ---
CRITICAL LAB: K+ 6.8 AND BUN 104. JESSIE ARAGON NOTIFIED
[2020-12-01 13:55] LABS: HEMATOCRIT 24.2 % (42.0-54.0); HEMOGLOBIN 7.9 g/dL (13.5-17.5)
--- NOTE | 2020-12-01 14:55 | NUR ---
PT DIAPHORETIC AND AMS. FSBS= 44 MG/DL. DR MEJIA AT BS AND VERBALORDER GIVEN TO ADMIN 1 AMP D50.
[2020-12-01 15:00] VITALS: BP 140/87
--- NOTE | 2020-12-01 15:04 | NUR ---
INQUIRED WITH DR MEJIA RE: LASIX AND PT MAKES NO URINE. DR MEJIA ORDERED OK TO ADMIN
--- NOTE | 2020-12-01 15:19 | NUR ---
SLEEPING WITH SNORING RESP. AROUSEABLE WHEN NAME CALLED. SKIN W/D. REPEAT FSBS= 98 MG/DL
--- NOTE | 2020-12-01 16:35 | NUR ---
RESTING UPRIGHT WITH EYES CLOSED. AROUSES WHEN NAME CALLED AND STATES "I'M HUNGRY" MEAL ORDERED. LEMON TATITLEK SODA GIVEN. FSBS= 60MG/DL
[2020-12-01 16:42] VITALS: BP 150/93
--- NOTE | 2020-12-01 16:45 | NUR ---
PAGED/SPOKE WITH DR MEJIA RE: FSBS= 60 MG/DL FEED PT RE CHECK BS IN 45 MINUTES. IF NOT IMPROVED/GOING UP START D10 @ 50 ML/HR
--- NOTE | 2020-12-01 17:38 | NUR ---
FSBS= 108 MG/DL
--- NOTE | 2020-12-01 17:43 | NUR ---
REPORT TO NIURKA WHYTE
--- NOTE | 2020-12-01 18:11 | NUR ---
Arrived to unit from ER via stretcher in stable condition accompanied by hospital staff and long-term guards, oriented to unit/room/bed controls, currently lying in bed, awake/alert/oriented, able to T/R self ad jaime, cont of B/B with BRPs per self ad jaime, denies pain/other discomfort at this time, call light/phone/water within reach, no s/s of acute distress observed at this time.
[2020-12-01 19:03] LABS: ANION GAP 23.7 mmol/L (8-16); CALCIUM 8.2 mg/dL (8.5-10.1); CARBON DIOXIDE 20.5 mmol/L (21.0-32.0); CREATININE - SERUM 18.2 mg/dL (0.6-1.3)
[2020-12-01 19:06] LABS: POTASSIUM - SERUM 6.2 mmol/L (3.5-5.1)
[2020-12-01 19:12] VITALS: BP 157/104
[2020-12-01 20:49] VITALS: BP 157/104; BMI 33.6
[2020-12-01] MEDS ORDERED: HYDROCODON-ACE1 EAC7 PO (21:41)
[2020-12-01 23:07] VITALS: BP 170/110
[2020-12-02] VITALS (10 sets, daily range): BP systolic 149–245; BP diastolic 87–117; Ht 180.3 cm; Wt 109.2 kg
[2020-12-02 06:19] LABS: BASOPHILS 0.5 % (0-2); HEMATOCRIT 23.2 % (42.0-54.0); HEMOGLOBIN 7.6 g/dL (13.5-17.5); IMMATURE GRANULOCYTES 0.5 % (0-5); LYMPHOCYTE ABS# 0.65 10x3/uL (1.32-3.57); LYMPHOCYTES 7.6 % (15-50); MCH 26.6 pg (26.0-34.0); MCHC 32.8 g/dL (31.0-37.0); MCV 81.1 fL (80.0-100.0); MEAN PLATELET VOLUME 10.7 fL (7.4-10.4); MONOCYTES 9.8 % (2-11); NEUTROPHIL ABS# 6.84 10x3/uL (1.78-5.38); NEUTROPHILS 79.6 % (40-80); PLATELET COUNT 137 10x3/uL (130-400); RBC 2.86 10x6/uL (4.20-6.10); RDW 15.1 % (11.5-14.5)
[2020-12-02 06:23] LABS: WBC 8.6 10x3/uL (4.8-10.8)
[2020-12-02 06:41] LABS: ALBUMIN 3.3 g/dL (3.4-5.0); BILIRUBIN - TOTAL 0.29 mg/dL (0.2-1.3); CALCIUM 8.1 mg/dL (8.5-10.1); CARBON DIOXIDE 20.8 mmol/L (21.0-32.0); CREATININE - SERUM 19.2 mg/dL (0.6-1.3); PROTEIN - SERUM 6.6 g/dL (6.4-8.2)
[2020-12-02 07:38] LABS: ANION GAP 25.1 mmol/L (8-16)
[2020-12-02 07:47] LABS: POTASSIUM - SERUM 6.9 mmol/L (3.5-5.1)
[2020-12-02 12:18] LABS: BASOPHILS 1.6 % (0-2); EOSINOPHILS 1.6 % (0-7); HEMOGLOBIN 7.6 g/dL (13.5-17.5); LYMPHOCYTES 8.5 % (15-50); MCH 27.6 pg (26.0-34.0); MCHC 33.1 g/dL (31.0-37.0); MONOCYTES 9.4 % (2-11); NEUTROPHILS 78.9 % (40-80); PLATELET COUNT 135 10x3/uL (130-400); RBC 2.76 10x6/uL (4.20-6.10); RDW 15.7 % (11.5-14.5); WBC 7.6 10x3/uL (4.8-10.8)
[2020-12-02 12:23] LABS: ANION GAP 23.5 mmol/L (8-16); CALCIUM 8.8 mg/dL (8.5-10.1); CREATININE - SERUM 19.4 mg/dL (0.6-1.3)
[2020-12-02 12:24] LABS: MCV 83.3 fL (80.0-100.0)
[2020-12-02 12:29] LABS: POTASSIUM - SERUM 6.5 mmol/L (3.5-5.1)
[2020-12-02 14:55] LABS: RBC 2.57 10x6/uL (4.20-6.10); WBC 6.9 10x3/uL (4.8-10.8)
[2020-12-02 14:57] LABS: BASOPHILS 1.3 % (0-2); EOSINOPHILS 1.8 % (0-7); HEMATOCRIT 21.2 % (42.0-54.0); LYMPHOCYTES 8.4 % (15-50); MCH 27.1 pg (26.0-34.0); MCHC 32.8 g/dL (31.0-37.0); MCV 82.5 fL (80.0-100.0); MEAN PLATELET VOLUME 7.6 fL (7.4-10.4); MONOCYTES 10.9 % (2-11); NEUTROPHILS 77.6 % (40-80); PLATELET COUNT 129 10x3/uL (130-400); RDW 15.6 % (11.5-14.5)
--- NOTE | 2020-12-02 14:58 | NUR ---
CALLED TO ROOM PER GUARD, PATIENT DIAPHORETIC. BLOOD SUGAR 37, DEXTROSE GIVEN AND RAPID RESPONSE CALLED. SEE NOTES. MOVED TO ICU.
[2020-12-02 15:10] LABS: ALBUMIN 3.1 g/dL (3.4-5.0); BILIRUBIN - TOTAL 0.34 mg/dL (0.2-1.3); CALCIUM 8.5 mg/dL (8.5-10.1); CARBON DIOXIDE 18.9 mmol/L (21.0-32.0); PROTEIN - SERUM 6.4 g/dL (6.4-8.2)
[2020-12-02 15:14] LABS: ANION GAP 23.6 mmol/L (8-16); POTASSIUM - SERUM 5.5 mmol/L (3.5-5.1)
--- NOTE | 2020-12-02 15:24 | NUR ---
CRITICAL LABS REPORTED TO DR. MEJIA.
--- NOTE | 2020-12-02 16:01 | NUR ---
L FEMORAL TRIALYSIS CATHETER PLACED EMERGENTLY BY DR. ROCK. DIALYSIS NOTIFIED TO COME STAT.
--- NOTE | 2020-12-02 17:51 | NUR ---
DIALYSIS STILL NOT PRESENT, EVEN THOUGH THEY WERE CALLED AND TOLD DR. ROCK ORDERED STAT DIALYSIS. THEY REPORTED THEY WOULD BE HERE IN 10 MINUTES AT THAT TIME. MONY LOMAS RN, AND I HAVE SINCE CALLED X 2 WITHOUT ANSWER. WENT TO DIALYSIS UNIT AND NO ONE WAS THERE.
--- NOTE | 2020-12-02 19:00 | NUR ---
RECEIVED BEDSIDE REPORT. PATIENT RECEIVING DIALYSIS AT THIS TIME. PATIENT IS AAO X 4. RESPIRATIONS ARE EVEN AND UNLABORED. BP ELEVATED AT THIS TIME. PRN HYDRALAZINE ADMINISTERED PRIOR, WILL CONTINUE TO MONITOR AND FOLLOW POC. NEEDS MET. CALL LIGHT WITHIN REACH. OFFICER AT BEDSIDE.
--- NOTE | 2020-12-02 21:39 | NUR ---
DIALYSIS NURSE REPORTED THAT SHE REMOVED 3L OFF PATIENT. PATIENT RESTING COMFORTABLY IN BED. NO S/S OF DISTRESS. NO C/O PAIN AT THIS TIME. BP 160/90.
[2020-12-03] VITALS (21 sets, daily range): BP systolic 120–210; BP diastolic 73–114
[2020-12-03 04:18] LABS: CALCIUM 8.3 mg/dL (8.5-10.1)
[2020-12-03 04:20] LABS: CREATININE - SERUM 13.6 mg/dL (0.6-1.3)
[2020-12-03 04:21] LABS: ANION GAP 16.2 mmol/L (8-16); POTASSIUM - SERUM 6.2 mmol/L (3.5-5.1)
[2020-12-03 09:32] LABS: BASOPHILS 1.9 % (0-2); EOSINOPHILS 1.7 % (0-7); HEMATOCRIT 24.2 % (42.0-54.0); HEMOGLOBIN 8.1 g/dL (13.5-17.5); LYMPHOCYTES 7.6 % (15-50); MCH 27.6 pg (26.0-34.0); MCHC 33.4 g/dL (31.0-37.0); MCV 82.6 fL (80.0-100.0); MONOCYTES 11.2 % (2-11); NEUTROPHILS 77.6 % (40-80); PLATELET COUNT 124 10x3/uL (130-400); RBC 2.93 10x6/uL (4.20-6.10); RDW 15.6 % (11.5-14.5)
--- NOTE | 2020-12-03 13:23 | NUR ---
HD IN PROGRESS.
--- NOTE | 2020-12-03 16:21 | NUR ---
5L TAKEN DURING HD. HYDRALIZINE GIVEN FOR HTN.
[2020-12-04] VITALS (8 sets, daily range): BP systolic 103–148; BP diastolic 50–92
--- NOTE | 2020-12-04 05:45 | NUR ---
LAB NOTIFIED TWICE ABOUT PT NEEDING AM LABS DRAWN
--- NOTE | 2020-12-04 06:49 | NUR ---
PT VOICES NO C/O OR CONCERNS DURING THE NIGHT, WAITING ON BED ON THE FLOOR. HAS BEEN NPO SINCE MIDNIGHT, GUARD AT BEDSIDE. WILL CTM
[2020-12-04 09:24] LABS: ANION GAP 13.7 mmol/L (8-16); CALCIUM 9.5 mg/dL (8.5-10.1); CARBON DIOXIDE 26.5 mmol/L (21.0-32.0); CREATININE - SERUM 11.8 mg/dL (0.6-1.3)
[2020-12-04 09:25] LABS: POTASSIUM - SERUM 5.2 mmol/L (3.5-5.1)
[2020-12-04 14:20] LABS: BASOPHILS 1.6 % (0-2); EOSINOPHILS 1.4 % (0-7); HEMATOCRIT 25.5 % (42.0-54.0); HEMOGLOBIN 8.5 g/dL (13.5-17.5); LYMPHOCYTES 7.8 % (15-50); MCH 27.8 pg (26.0-34.0); MCHC 33.3 g/dL (31.0-37.0); MCV 83.5 fL (80.0-100.0); MEAN PLATELET VOLUME 8.4 fL (7.4-10.4); MONOCYTES 11.6 % (2-11); NEUTROPHILS 77.6 % (40-80); PLATELET COUNT 139 10x3/uL (130-400); RBC 3.05 10x6/uL (4.20-6.10); RDW 15.3 % (11.5-14.5)
[2020-12-04 14:27] LABS: ANION GAP 16.1 mmol/L (8-16); CALCIUM 9.6 mg/dL (8.5-10.1); CARBON DIOXIDE 26.5 mmol/L (21.0-32.0); CREATININE - SERUM 12.2 mg/dL (0.6-1.3); POTASSIUM - SERUM 4.6 mmol/L (3.5-5.1)
--- NOTE | 2020-12-04 14:42 | NUR ---
ARRIVE TO FLOOR. GUARD AT SIDE. DENIES ANY NEEDS AT THIS TIME.
--- NOTE | 2020-12-04 19:17 | NUR ---
INITAIL ROUNDS COMPLETED. PT SNORING LIGHTLY. RESP EVEN AND REGULAR. CALL LIGHT WITHIN REACH.
--- NOTE | 2020-12-04 21:31 | NUR ---
ASSESSMENT COMPLETED AT 1935 HRS. VSS. SR PER CM HR 78. ALERT AND ORIENTED TO PERSON, PLACE AND TIME. HESS. PALPABLE PERIPHERAL PULSES. L GROIN TRIALYSIS CLEAN,DRY AND INTACT. R GROIN FISTULI WITH BRUIT NOTED. MULTIPLE OLD FISTULAS TO BILAT ARM. LUNGS CTA. NORCO PO GIVEN AT 2000 HRS FOR C/O L GROIN PAIN. PM MEDS GIVEN. PT CURRENTLY WATCHING TV. SR UP X2,CALL LIGHT WITHIN REACH.
[2020-12-05 00:13] VITALS: BP 122/71
--- NOTE | 2020-12-05 00:15 | NUR ---
FSBS 117. NO COVERAGE NEEDED. CALL LIGHT WITHIN REACH.
[2020-12-05 04:00] VITALS: BP 123/73
--- NOTE | 2020-12-05 04:13 | NUR ---
PT RESTING WITH EYES CLOSED. RESP EVEN AND REGULAR. CALL LIGHT WITHIN REACH.
--- NOTE | 2020-12-05 05:12 | NUR ---
UNABLE TO DRAW VIA NURSE PORT OF DIALYSIS CATHETER. LAB NOTIFIED.
--- NOTE | 2020-12-05 06:04 | NUR ---
HIBICLENS BATH DONE. AM FSBS 120. NO COVERAGE NEEDED. NPO FOR PROCEDURE TODAY. NEEDS MET; WILL CONTINUE TO MONITOR.
--- NOTE | 2020-12-05 07:11 | NUR ---
RECEIVE SHIFT REPORT. RESTING IN BED WITH TV ON. GUARD AT BEDSIDE. STATES HE WOULD LIKE HIS PAIN MEDICATION SOON HE IS ABLE TO HAVE IT. PAIN 01/07. WILL CONTINUE POC AND SAFETY PRECAUTIONS. SURGERY TODAY.
[2020-12-05 08:13] LABS: BASOPHILS 1.5 % (0-2); EOSINOPHILS 1.9 % (0-7); HEMATOCRIT 23.2 % (42.0-54.0); HEMOGLOBIN 7.6 g/dL (13.5-17.5); LYMPHOCYTES 9.5 % (15-50); MCH 27.4 pg (26.0-34.0); MCHC 32.9 g/dL (31.0-37.0); MCV 83.5 fL (80.0-100.0); MEAN PLATELET VOLUME 8.1 fL (7.4-10.4); MONOCYTES 9.5 % (2-11); NEUTROPHILS 77.6 % (40-80); PLATELET COUNT 115 10x3/uL (130-400); RBC 2.78 10x6/uL (4.20-6.10); RDW 15.5 % (11.5-14.5)
[2020-12-05 08:26] LABS: ALBUMIN 3.2 g/dL (3.4-5.0); ANION GAP 17.2 mmol/L (8-16); BILIRUBIN - TOTAL 0.31 mg/dL (0.2-1.3); CALCIUM 8.9 mg/dL (8.5-10.1); CARBON DIOXIDE 24.3 mmol/L (21.0-32.0); CREATININE - SERUM 13.7 mg/dL (0.6-1.3); PROTEIN - SERUM 6.9 g/dL (6.4-8.2)
[2020-12-05 08:32] LABS: POTASSIUM - SERUM 6.5 mmol/L (3.5-5.1)
--- NOTE | 2020-12-05 08:39 | NUR ---
NOTIFIED JESSIE ROWLEY OF CRITICAL POTASSIUM. WILL NEED TO GET DIALYSIS BEFORE SURGERY. WILL CALL DR. ROCK.
[2020-12-05 09:00] VITALS: BP 139/77
--- NOTE | 2020-12-05 09:20 | NUR ---
DOWN TO DIALYSIS
--- NOTE | 2020-12-05 13:23 | NUR ---
BACK FROM DIALYSIS
[2020-12-05 16:18] VITALS: BP 133/88
--- NOTE | 2020-12-05 17:54 | NUR ---
TRIED TO CALL SURGERY TO SEE WHEN PATIENT WAS GOING TO SURGERY. NO ANSWER. I CALLED THE SAP TECHNICAL DEVELOPER TO MAKE HER AWARE OF THIS.
--- NOTE | 2020-12-05 18:24 | NUR ---
TO OR VIA BED.
[2020-12-05 20:00] VITALS: BP 134/77
--- NOTE | 2020-12-05 20:08 | NUR ---
PT BACK FROM OR. VSS. RR E/U. A/O X4. PT COMPLAINS 9/10 PAIN IN RIGHT GROIN.
[2020-12-06] VITALS: BP 136/75
--- NOTE | 2020-12-06 00:33 | NUR ---
PT COMPLAINS OF PAIN 03/10 IN RIGHT GROIN WHERE HEMESPLIT REMOVED 12/05/20.HALLEY ROMAN NOTIFIED NEW MEDICATION ORDER ESTABLISHED. SEE MAR. VSS. A/O X4. RR E/U. BED LOW CALL LIGHT WITHIN REACH. WILL CONTINUE TO MONITOR.
--- NOTE | 2020-12-06 03:19 | NUR ---
I have reviewed this patient and I concur with the Shift Assessment completed by the Licensed Practical Nurse today this shift.
[2020-12-06 04:00] VITALS: BP 125/72
[2020-12-06 04:28] LABS: BASOPHILS 2.8 % (0-2); EOSINOPHILS 2.8 % (0-7); HEMOGLOBIN 7.9 g/dL (13.5-17.5); LYMPHOCYTES 11.7 % (15-50); MCH 27.5 pg (26.0-34.0); MCHC 32.9 g/dL (31.0-37.0); MCV 83.5 fL (80.0-100.0); MEAN PLATELET VOLUME 7.9 fL (7.4-10.4); MONOCYTES 10.7 % (2-11); PLATELET COUNT 118 10x3/uL (130-400); RBC 2.87 10x6/uL (4.20-6.10); RDW 15.2 % (11.5-14.5)
[2020-12-06 04:30] LABS: WBC 4.7 10x3/uL (4.8-10.8)
[2020-12-06 04:55] LABS: ALBUMIN 3.2 g/dL (3.4-5.0); ANION GAP 15.4 mmol/L (8-16); BILIRUBIN - TOTAL 0.38 mg/dL (0.2-1.3); CALCIUM 8.6 mg/dL (8.5-10.1); CARBON DIOXIDE 27.7 mmol/L (21.0-32.0); CREATININE - SERUM 11.6 mg/dL (0.6-1.3); PROTEIN - SERUM 7.3 g/dL (6.4-8.2)
[2020-12-06 04:56] LABS: POTASSIUM - SERUM 6.1 mmol/L (3.5-5.1)
[2020-12-06 08:14] VITALS: BP 132/83
--- NOTE | 2020-12-06 08:25 | NUR ---
AM MEDS GIVEN AT THIS TIME. PT AWAKE AND ALERT , AAOX4, PLEASANT AND TALKATIVE. GAURD AT BEDSIDE. PT WATCHING TV, DENIES ANY PAIN OR NEEDS. DRESSING TO LEFT UPPER LEG C/D/I. CLWR.
[2020-12-06 11:37] VITALS: BP 110/63
--- NOTE | 2020-12-06 13:00 | NUR ---
Nutrition Reassessment/Follow-up: POD 1 hemosplit placement. K+ elevated. HD today. Diet: Renal, Carb Consistent PO intake: 100% x 3 meals Wt: 240.3# (12/03) Labs noted: K+ 6.1, BUN 55, Cre 11.6, GFR 6, Glu 113, Alb 3.2 Meds noted: Renagel, Sensipar, Protonix Nutrition Intervention: -Nutrition needs, Dx, & goals unchanged since initial assessment. -RD will follow up within 7 days.
--- NOTE | 2020-12-06 14:01 | MORECARE ---
CASE MANAGEMENT DISCHARGE SUMMARY PATIENT: KASIA MCINTOSH UNIT: [id number] ADM DATE: 12/02/20 AGE: 44 : [birth year] SEX: M ROOM/BED: D.[facility]5 AUTHOR: CHRISTINADOC PHYSICIAN: REFERRING PHYSICIAN: DEREK POWERS MD DATE OF SERVICE: 12/06/20 Case Management Discharge Planning Summary DCP REVIEW SUMMARY ANTICIPATED D/C DATE: EXPECTED LOS : CASE STATUS: DCP Initiated INITIAL REVIEW: 12/01/2020 INITIAL REVIEWER: Perry Horan FINAL DISCHARGE DISPOSITION: : FINAL REVIEWER: FINAL REVIEW DATE: DCP Focus Questions & Answers QUESTION: ANSWER : PATIENT: KASIA MCINTOSH ENCOUNTER: [id number] MEDICAL RECORD#: [id number] ADMISSION DATE: 12/02/2020 DISCHARGE DATE: ATTENDING MD: ZENY ELENA : AGE: 44 MARITAL STATUS: S DC PLAN ID: [id number] FACILITY: [facility] PRINTED ON: 12/06/20 14:00 CT All edits/amendments must be made on the electronic document DICTATION DATE: 12/06/20 1400 COMMUNICATION ASSISTANT: DM 12/06/20 1400 RPT#: [id number] DC DATE: STATUS: ADM IN [facility] [address] [place] [address] END OF REPORT
[2020-12-06 16:00] VITALS: BP 106/53
[2020-12-06 20:00] VITALS: BP 152/84
[2020-12-07] VITALS: BP 148/82
--- NOTE | 2020-12-07 01:03 | NUR ---
I have reviewed this patient and I concur with the Shift Assessment completed by the Licensed Practical Nurse today this shift.
[2020-12-07 04:00] VITALS: BP 143/77
[2020-12-07 06:26] LABS: BASOPHILS 1.4 % (0-2); HEMATOCRIT 22.5 % (42.0-54.0); LYMPHOCYTES 9.4 % (15-50); MCH 27.7 pg (26.0-34.0); MCHC 33.5 g/dL (31.0-37.0); MCV 82.6 fL (80.0-100.0); MEAN PLATELET VOLUME 8.3 fL (7.4-10.4); MONOCYTES 14.9 % (2-11); NEUTROPHILS 72.3 % (40-80); PLATELET COUNT 122 10x3/uL (130-400); RBC 2.73 10x6/uL (4.20-6.10); RDW 14.8 % (11.5-14.5); WBC 4.5 10x3/uL (4.8-10.8)
[2020-12-07 07:06] LABS: ALBUMIN 3.3 g/dL (3.4-5.0); BILIRUBIN - TOTAL 0.32 mg/dL (0.2-1.3); CALCIUM 9.1 mg/dL (8.5-10.1); CARBON DIOXIDE 27.3 mmol/L (21.0-32.0); PROTEIN - SERUM 7.5 g/dL (6.4-8.2)
[2020-12-07 07:08] LABS: ANION GAP 15.7 mmol/L (8-16)
[2020-12-07 07:29] LABS: HEMOGLOBIN 7.5 g/dL (13.5-17.5)
--- NOTE | 2020-12-07 08:58 | NUR ---
AM MEDS GIVEN AT THIS TIME WITH PRN PAIN MEDICATION. PT AWAKE AND ALERT, RR EVEN NON LABORED ON ROOM AIR. PT ANSWERS QUESTIONS APPROP. NO FURTHER NEEDS VOICED. CLWR.
[2020-12-07 09:00] VITALS: BP 152/92
[2020-12-07] MEDS ORDERED: PROCARDIA XL PO (10:52)
[2020-12-07] MEDS ORDERED: CATAPRES TTS-3 TRANSDERM (10:52)
[2020-12-07] MEDS ORDERED: COREG12.5 MG PO (10:52)
[2020-12-07] MEDS ORDERED: LOKELMA10 GM PO (10:53)
--- NOTE | 2020-12-07 11:39 | NUR ---
SPOKE WITH NIKI MICHELLE WITH NEPHROLOGY REGARDING TRANSFUSION ORDER , PER HER IT IS OK TO D/C TO FACILITY WITHOUT TRANSFUSION PRIOR TO D/C. SPOKE WITH WALLACE MICHELLE REGARDING THIS ALSO.
[2020-12-07 12:00] VITALS: BP 149/83
--- NOTE | 2020-12-07 13:42 | NUR ---
REPORT CALLED TO NURSE AT [facility] AT THIS TIME, SPOKE WITH NIKI MICHELLE TO ENSURE IT IS OK FOR PT TO RETURN TO F DIALYSIS SCHEDULE , NO FURTHER QUESTIONS VOICED. NOTIFIED GUARD OF D/C PLAN.
--- NOTE | 2020-12-07 14:53 | NUR ---
ASSISTED PT WITH SHOWER, CHANGED DRESSING TO LEFT GROIN, GAVE NONSKID SOCKS, PT TOLERATED ACTIVITY WITHOUT DIFFICUTLY. NO FURTHER NEEDS OR QUESTIONS VOICED. GUARD IS UNSURE WHEN TRANSPORT WILL ARRIVE. CLWR.
--- NOTE | 2020-12-07 15:26 | NUR ---
PT WHEELED TO TRANSPORT WITH GAURDS AT SIDE AT THIS TIME. ALL PAPERWORK WITH GAURD TIME OF D/C. NO DISTRESS NOTED.
--- NOTE | 2020-12-07 15:34 | MORECARE ---
CASE MANAGEMENT DISCHARGE SUMMARY PATIENT: KASIA MCINTOSH UNIT: [id number] ADM DATE: 12/02/20 AGE: 44 : 77 SEX: M ROOM/BED: D.2135 AUTHOR: CHRISTINA,DOC PHYSICIAN: REFERRING PHYSICIAN: DEREK POWERS MD DATE OF SERVICE: 12/07/20 Case Management Discharge Planning Summary DCP REVIEW SUMMARY ANTICIPATED D/C DATE: EXPECTED LOS : CASE STATUS: DCP Initiated INITIAL REVIEW: 12/01/2020 INITIAL REVIEWER: Perry Horan FINAL DISCHARGE DISPOSITION: : FINAL REVIEWER: FINAL REVIEW DATE: DCP Focus Questions & Answers QUESTION: ANSWER : PATIENT: KASIA MCINTOSH ENCOUNTER: [id number] MEDICAL RECORD#: [id number] ADMISSION DATE: 12/02/2020 DISCHARGE DATE: 12/07/2020 ATTENDING MD: ZENY ELENA : AGE: 44 MARITAL STATUS: S DC PLAN ID: [id number] FACILITY: [facility] PRINTED ON: 12/07/20 15:33 CT All edits/amendments must be made on the electronic document DICTATION DATE: 12/07/20 153 HANDYMAN: DM 12/07/20 1533 RPT#: [id number] DC DATE:12/07/20 STATUS: DIS IN [facility] [address] [place] [address] END OF REPORT
== END 2020-12-07 15:26 | DRG 698 ==
LOC: D.ER 11:00 → D.M2 13:36 → D.EDHOLD 13:36 → OBSVTIME 13:36 → D.M2 17:08 → D.ICU 12-02 10:21 → D.M2 12-04 14:34
PROVIDERS: Emergency Medicine; Internal Medicine Nephrology; Surgery; ADMIT Emergency Medicine; ATTEND Emergency Medicine
PROC: 06HY33Z Insertion of Infusion Device into Lower Vein, Percutaneous Approach (ICD-10-PCS; principal; 2020-12-02)
DX: T82.49XA Other complication of vascular dialysis catheter, initial encounter (principal); N18.6 End stage renal disease; G93.41 Metabolic encephalopathy; N25.81 Secondary hyperparathyroidism of renal origin; I12.0 Hypertensive chronic kidney disease with stage 5 chronic kidney disease or end stage renal disease; E87.2 Acidosis; N17.9 Acute kidney failure, unspecified; D63.1 Anemia in chronic kidney disease; Z99.2 Dependence on renal dialysis; E87.5 Hyperkalemia